=== PATIENT | male | born 1950 | race Caucasian/White ===

== ENCOUNTER → 2018-05-13 | Outpatient (CLI) | payer MEDICARE, OTHER ==
[2018-05-13 11:08] LABS: Potassium 4.7 mmol/L (3.5-5.1)
== END | disposition home or self-care (01) ==
LOC: LABWHC1 09:52
PROVIDERS: ATTEND Internal Medicine
DX: R73.9 Hyperglycemia, unspecified (principal); E87.5 Hyperkalemia
CPT/HCPCS: 36415; 80051; 82947; 83036

== ENCOUNTER 2018-11-04 16:20 | Emergency (ER) | payer MEDICARE, OTHER ==
[2018-11-04] MEDS ORDERED: SODIUM CHLORIDE 0.9% 500 ML 500 ML IV STA (17:17)
[2018-11-04 17:52] VITALS: RESP 16
[2018-11-04 18:16] LABS: Basophils # (A) 0.1 k/uL (0-0.2); Basophils % (A) 1 %; Eosinophils # (A) 0.3 k/uL (0-0.7); Eosinophils % (A) 4 %; HCT 47.2 % (39.0-53.0); HGB 15.4 gm/dL (13.0-17.5); Lymphocytes # (A) 1.7 k/uL (1.0-4.8); Lymphocytes % (A) 19 %; MCH 31.4 pg (25.0-35.0); MCHC 32.7 g/dL (31.0-37.0); MCV 96.1 fL (80.0-100.0); Monocytes # (A) 0.5 k/uL (0-1.0); Monocytes % (A) 6 %; Neutrophils # (A) 6.2 k/uL (1.3-7.7); Neutrophils % (A) 69 %; Platelet Count 292 k/uL (150-450); RBC 4.91 m/uL (4.30-5.90); RDW 13.4 % (11.5-15.5); WBC 8.9 k/uL (3.8-10.6)
[2018-11-04 18:26] LABS: Partial Thromboplastin Time 26.8 sec (22.0-30.0); Prothrombin Time 10.4 sec (9.0-12.0)
--- NOTE | 2018-11-04 18:26 | XR ---
EXAMINATION TYPE: XR chest 2V DATE OF EXAM: 11/04/2018 COMPARISON: 05/19/2012 HISTORY: Chest pain TECHNIQUE: Frontal and lateral views of the chest are obtained. FINDINGS: There is some coarsening of interstitial markings. There is poorly marginated 1.5 cm area of increased density over the left lower lobe unchanged and consistent with scarring. There is no ple ural effusion. There are sternal wires. Thoracic aorta is atheromatous. There is old left healed clav icle fracture. Thoracic spine is intact. IMPRESSION: No active cardiopulmonary disease. Mild pulmonary fibrotic changes.
--- NOTE | 2018-11-04 18:27 | XR ---
EXAMINATION TYPE: XR ribs LT DATE OF EXAM: 11/04/2018 COMPARISON: Today HISTORY: Left side chest pain TECHNIQUE: 4 views. I see no pleural effusion or pneumothorax. Left lung is clear of infiltrate. I see no rib fracture. IMPRESSION: Negative left ribs exam
[2018-11-04 18:28] LABS: Creatine Kinase 46 U/L (55-170)
[2018-11-04 18:29] LABS: ALT 24 U/L (21-72); AST 20 U/L (17-59); Albumin 4.1 g/dL (3.5-5.0); Alkaline Phosphatase 86 U/L (38-126); Anion Gap 7 mmol/L; Blood Urea Nitrogen 12 mg/dL (9-20); Calcium 9.5 mg/dL (8.4-10.2); Carbon Dioxide 27 mmol/L (22-30); Chloride 101 mmol/L (98-107); Glucose 94 mg/dL (74-99); Magnesium 2.2 mg/dL (1.6-2.3); Potassium 4.4 mmol/L (3.5-5.1); Sodium 135 mmol/L (137-145); Total Bilirubin 0.5 mg/dL (0.2-1.3); Total Protein 6.9 g/dL (6.3-8.2)
[2018-11-04 18:41] LABS: Creatine Kinase MB 1.8 ng/mL (0.0-2.4); Troponin I <0.012 ng/mL (0.000-0.034)
[2018-11-04] MEDS ORDERED: LIDOCAINE 5% PATCH TOPICAL STA (19:05)
--- NOTE | 2018-11-04 19:07 | ED ---
Fall HPI - General Chief Complaint: Fall Stated Complaint: Fall a week ago, rib pain Time Seen by Provider: 11/04/18 16:55 Source: patient Mode of arrival: ambulatory - History of Present Illness Initial Comments: 68-year-old male patient presents to the emergency department today for evaluation of left-sided rib and chest pain. Patient states approximately one week ago he did experience a fall after tripping over the dog and landed on the left side of his chest. Patient states he's had discomfort and increased pain with deep breathing and movement to the area since the injury. States that last evening the pain seemed to worsen. States that without any provocation he became short of breath, had some left-sided rib pain, and had some sweats. Patient states this concerned him so he presented here today for further evaluation. He denies any fevers or chills. Denies any cough or hemoptysis. Denies any nausea or vomiting. Denies any abdominal pain. Patient denies any recent rash, abdominal pain, nausea, vomiting, diarrhea, constipation, numbness , tingling, dizziness, weakness, hematuria, dysuria, urinary urgency, urinary frequency, headache, visual changes, or any other complaints. - Related Data Home Medications Medication Instructions Recorded Confirmed ALPRAZolam [Xanax] 0.5 mg PO DAILY 11/04/18 11/04/18 Aspirin [[place] [employer] Aspirin EC] 81 mg PO DAILY 11/04/18 11/04/18 Lisinopril [Zestril] 10 mg PO BID 11/04/18 11/04/18 Metoprolol Tartrate [Lopressor] 25 mg PO DAILY 11/04/18 11/04/18 Simvastatin [Zocor] 40 mg PO HS 11/04/18 11/04/18 Venlafaxine HCl [Effexor] 75 mg PO DAILY 11/04/18 11/04/18 Allergies Allergy/AdvReac Type Severity Reaction Status Date / Time No Known Allergies Allergy Verified 11/04/18 17:13 Review of Systems ROS Statement: Those systems with pertinent positive or pertinent negative responses have been documented in the HPI. ROS Other: All systems not noted in ROS Statement are negative. Past Medical History Past Medical History: Coronary Artery Disease (CAD), Chest Pain / Angina, Hyperlipidemia, Hypertension History of Any Multi-Drug Resistant Organisms: None Reported Past Surgical History: Coronary Bypass/CABG Past Psychological History: No Psychological Hx Reported Smoking Status: Current every day smoker Past Alcohol Use History: Occasional Past Drug Use History: None Reported General Exam Limitations: no limitations General appearance: alert, in no apparent distress, other (Physical well- developed, well-nourished elderly male patient in no acute distress. Vital signs upon presentation temperature 97.6F, pulse 66, respirations 20, blood pressure 183/79, pulse ox 99% on room air.) Eye exam: Present: normal appearance, PERRL, EOMI. Absent: scleral icterus, conjunctival injection, periorbital swelling ENT exam: Present: normal exam, normal oropharynx, mucous membranes moist Respiratory exam: Present: normal lung sounds bilaterally, chest wall tenderness (Mild left lateral chest wall tenderness near the midaxillary line). Absent: respiratory distress, wheezes, rales, rhonchi, stridor Cardiovascular Exam: Present: regular rate, normal rhythm, normal heart sounds. Absent: systolic murmur, diastolic murmur, rubs, gallop, clicks GI/Abdominal exam: Present: soft, normal bowel sounds. Absent: distended, tenderness, guarding, rebound, rigid Neurological exam: Present: alert, oriented X3, CN II-XII intact Psychiatric exam: Present: normal affect, normal mood Skin exam: Present: warm, dry, intact, normal color. Absent: rash Course Vital Signs 11/04/18 11/04/18 11/04/18 16:27 17:51 19:15 Temperature 97.6 F 98.5 F Pulse Rate 66 67 71 Respiratory 20 16 16 Rate Blood Pressure 183/79 191/83 156/68 O2 Sat by Pulse 99 95 96 Oximetry Medical Decision Making - Medical Decision Making 68-year-old male patient presented to the emergency department today for evaluation of left-sided rib and chest pain. Physical examination did reveal some mild tenderness over the left lateral chest wall near the midaxillary line. Lungs are clear to auscultation with good air movement. Given patient's history of CABG and episode of sweating and shortness of breath last evening he did perform labs which showed a normal troponin. EKG showed a sinus rhythm with a right bundle branch block. Patient declined need for pain medication. Did discuss findings and results with the patient, did discuss x-ray showed negative rib fracture. We did discuss chest wall contusion. He is instructed to take, Motrin for pain control. Instructed to apply ice over the area. He is instructed to follow-up with his primary care physician and school speech therapist for further evaluation. Return parameters were discussed in detail. He verbalizes understanding and agrees with this plan. - Lab Data Result diagrams: 11/04/18 17:47 11/04/18 17:47 Lab Results 11/04/18 11/04/18 11/04/18 Range/Units 17:47 17:47 17:47 WBC 8.9 (3.8-10.6) k/uL RBC 4.91 (4.30-5.90) m/uL Hgb 15.4 (13.0-17.5) gm/dL Hct 47.2 (39.0-53.0) % MCV 96.1 (80.0-100.0) fL MCH 31.4 (25.0-35.0) pg MCHC 32.7 (31.0-37.0) g/dL RDW 13.4 (11.5-15.5) % Plt Count 292 (150-450) k/uL Neutrophils % 69 % Lymphocytes % 19 % Monocytes % 6 % Eosinophils % 4 % Basophils % 1 % Neutrophils # 6.2 (1.3-7.7) k/uL Lymphocytes # 1.7 (1.0-4.8) k/uL Monocytes # 0.5 (0-1.0) k/uL Eosinophils # 0.3 (0-0.7) k/uL Basophils # 0.1 (0-0.2) k/uL PT (9.0-12.0) sec INR (<1.2) APTT (22.0-30.0) sec Sodium 135 L (137-145) mmol/L Potassium 4.4 (3.5-5.1) mmol/L Chloride 101 (98-107) mmol/L Carbon Dioxide 27 (22-30) mmol/L Anion Gap 7 mmol/L BUN 12 (9-20) mg/dL Creatinine 0.97 (0.66-1.25) mg/dL Est GFR (CKD-EPI)AfAm >90 (>60 ml/min/1.73 sqM) Est GFR (CKD-EPI)NonAf 79 (>60 ml/min/1.73 sqM) Glucose 94 (74-99) mg/dL Calcium 9.5 (8.4-10.2) mg/dL Magnesium 2.2 (1.6-2.3) mg/dL Total Bilirubin 0.5 (0.2-1.3) mg/dL AST 20 (17-59) U/L ALT 24 (21-72) U/L Alkaline Phosphatase 86 (38-126) U/L Total Creatine Kinase 46 L (55-170) U/L CK-MB (CK-2) 1.8 (0.0-2.4) ng/mL CK-MB (CK-2) Rel Index 3.9 Troponin I <0.012 (0.000-0.034) ng/mL Total Protein 6.9 (6.3-8.2) g/dL Albumin 4.1 (3.5-5.0) g/dL 11/04/18 Range/Units 17:47 WBC (3.8-10.6) k/uL RBC (4.30-5.90) m/uL Hgb (13.0-17.5) gm/dL Hct (39.0-53.0) % MCV (80.0-100.0) fL MCH (25.0-35.0) pg MCHC (31.0-37.0) g/dL RDW (11.5-15.5) % Plt Count (150-450) k/uL Neutrophils % % Lymphocytes % % Monocytes % % Eosinophils % % Basophils % % Neutrophils # (1.3-7.7) k/uL Lymphocytes # (1.0-4.8) k/uL Monocytes # (0-1.0) k/uL Eosinophils # (0-0.7) k/uL Basophils # (0-0.2) k/uL PT 10.4 (9.0-12.0) sec INR 1.0 (<1.2) APTT 26.8 (22.0-30.0) sec Sodium (137-145) mmol/L Potassium (3.5-5.1) mmol/L Chloride (98-107) mmol/L Carbon Dioxide (22-30) mmol/L Anion Gap mmol/L BUN (9-20) mg/dL Creatinine (0.66-1.25) mg/dL Est GFR (CKD-EPI)AfAm (>60 ml/min/1.73 sqM) Est GFR (CKD-EPI)NonAf (>60 ml/min/1.73 sqM) Glucose (74-99) mg/dL Calcium (8.4-10.2) mg/dL Magnesium (1.6-2.3) mg/dL Total Bilirubin (0.2-1.3) mg/dL AST (17-59) U/L ALT (21-72) U/L Alkaline Phosphatase (38-126) U/L Total Creatine Kinase (55-170) U/L CK-MB (CK-2) (0.0-2.4) ng/mL CK-MB (CK-2) Rel Index Troponin I (0.000-0.034) ng/mL Total Protein (6.3-8.2) g/dL Albumin (3.5-5.0) g/dL - Radiology Data Radiology results: report reviewed, image reviewed Two-view x-ray of the chest is obtained. Report was reviewed in its entirety. Impression by Dr. Iraheta shows no active cardiopulmonary disease. Mild pulmonary fibrotic changes. 4 views of the left ribs are obtained. These no pleural effusion or pneumothorax the left lung is clear infiltrate. There is no rib fracture. Impression by Dr. Iraheta shows negative left ribs exam. Disposition Clinical Impression: Left-sided chest wall pain Disposition: HOME SELF-CARE Condition: Good Instructions: Chest Wall Pain (ED) Additional Instructions: Apply ice to the painful area. Continue taking ibuprofen, with meals. Follow- up with your primary care physician for recheck as soon as possible. Follow-up with your school speech therapist for reevaluation as soon as possible. Return immediately for any new, worsening, or concerning symptoms Is patient prescribed a controlled substance at d/c from ED?: No Referrals: Diane Clarke MD [Primary Care Provider] - 1-2 days Nash Saavedra MD [STAFF PHYSICIAN] - 1-2 days Time of Disposition: 19:06
[2018-11-04 19:19] VITALS: BP 156/68; PULSE 71; TEMP 98.5
== END 2018-11-04 19:26 | disposition home or self-care (01) ==
LOC: EC 16:20
DX: R07.89 Other chest pain (principal); J84.10 Pulmonary fibrosis, unspecified; I45.10 Unspecified right bundle-branch block; R06.02 Shortness of breath; R61 Generalized hyperhidrosis; R07.81 Pleurodynia; E78.5 Hyperlipidemia, unspecified; I10 Essential (primary) hypertension; I25.119 Atherosclerotic heart disease of native coronary artery with unspecified angina pectoris; F17.200 Nicotine dependence, unspecified, uncomplicated; Z79.82 Long term (current) use of aspirin; Z79.899 Other long term (current) drug therapy; Z95.1 Presence of aortocoronary bypass graft
CPT/HCPCS: 36415; 71046; 80053; 82550; 82553; 83735; 84484; 85025; 85610; 85730; 93005; 96360; 99284

== ENCOUNTER → 2019-07-04 | Outpatient (CLI) | payer MEDICARE, OTHER ==
--- NOTE | 2019-07-04 09:37 | XR ---
EXAMINATION TYPE: XR shoulder complete LT DATE OF EXAM: 07/04/2019 COMPARISON: NONE HISTORY: Pain TECHNIQUE: Three views are submitted. FINDINGS: The osseous structures are intact. There is no acute fracture or dislocation. Chronic deformity of t he left clavicle suggestive of remote trauma. Hypertrophic spurring involving the AC joint. IMPRESSION: 1. AC joint arthropathy correlate for rotator cuff impingement. 2. Remote left clavicular fracture
== END | disposition home or self-care (01) ==
LOC: RADXRYALE 09:11
PROVIDERS: ATTEND Internal Medicine
DX: M19.011 Primary osteoarthritis, right shoulder (principal)

== ENCOUNTER 2020-05-18 09:52 | Emergency (ER) | payer MEDICARE, OTHER ==
[2020-05-18 09:58] VITALS: TEMP 98.2
[2020-05-18] MEDS ORDERED: HYDROmorphone 1 MG/ML 1 ML SYRINGE IM STA (10:13)
--- NOTE | 2020-05-18 10:26 | ED ---
Back Pain HPI - General Chief Complaint: Back Pain/Injury Stated Complaint: Back pain Time Seen by Provider: 05/18/20 10:02 Source: patient, RN notes reviewed Limitations: physical limitation - History of Present Illness Initial Comments: This is a 69-year-old male presents emergency from chief complaint of left-sided low back pain, left leg pain. Patient states that this happened on Wednesday when he went to lift a bucket weighing approximately 65 pounds over the edge of the truck bed. Patient states he has a felt pain in his left low back. Patient states she's been dealing with this back pain which has not been improving. He denies any bowel, bladder incontinence or retention. Denies any difficulty and bleeding. Patient has no current went to paresthesias of his left leg or saddle anesthesias. Patient states he has had back problems in the past with work. Patient states she's been taking Motrin for his pain. Patient states pain is worse with movement he is able to get comfortable concerns is laying down. Patient denies any abdominal pain, dysuria, fever, chills. Denies any discoloration to his lower extremity - Related Data Home Medications Medication Instructions Recorded Confirmed Aspirin [[place] Aspirin EC] 162 mg PO DAILY 11/04/18 05/18/20 Lisinopril [Zestril] 10 mg PO BID 11/04/18 05/18/20 Metoprolol Tartrate [Lopressor] 25 mg PO DAILY 11/04/18 05/18/20 Simvastatin [Zocor] 40 mg PO HS 11/04/18 05/18/20 Mirtazapine 15 mg PO HS 05/18/20 05/18/20 amLODIPine [Norvasc] 5 mg PO DAILY 05/18/20 05/18/20 clonazePAM 0.5 mg PO BID 05/18/20 05/18/20 Previous Rx's Medication Instructions Recorded Cyclobenzaprine [Flexeril] 5 mg PO TID PRN #15 tablet 05/18/20 Hydrocodone/Acetaminophen [[place] 1 tab PO Q6HR PRN #12 tab 05/18/20 5-325] Allergies Allergy/AdvReac Type Severity Reaction Status Date / Time No Known Allergies Allergy Verified 05/18/20 10:46 Review of Systems ROS Statement: Those systems with pertinent positive or pertinent negative responses have been documented in the HPI. ROS Other: All systems not noted in ROS Statement are negative. Past Medical History Past Medical History: Coronary Artery Disease (CAD), Chest Pain / Angina, Hyperlipidemia, Hypertension History of Any Multi-Drug Resistant Organisms: None Reported Past Surgical History: Coronary Bypass/CABG, Orthopedic Surgery Additional Past Surgical History / Comment(s): rotator cuff Past Psychological History: No Psychological Hx Reported Smoking Status: Current every day smoker Past Alcohol Use History: Occasional Past Drug Use History: None Reported General Exam Limitations: physical limitation General appearance: alert, in no apparent distress Head exam: Present: atraumatic, normocephalic, normal inspection Neck exam: Present: normal inspection, full ROM. Absent: tenderness, meningismus, lymphadenopathy Respiratory exam: Present: normal lung sounds bilaterally. Absent: respiratory distress, wheezes, rales, rhonchi, stridor Cardiovascular Exam: Present: regular rate, normal rhythm, normal heart sounds. Absent: systolic murmur, diastolic murmur, rubs, gallop, clicks GI/Abdominal exam: Present: soft, normal bowel sounds. Absent: distended, tend erness, guarding, rebound, rigid Extremities exam: Present: other (Lower extremity strength equal bilaterally, neurovascular intact equal color equal warmth pedal pulses equal bilaterally) Back exam: Present: full ROM (Patient reports mild discomfort with range of motion), tenderness (Past left lower lumbar), paraspinal tenderness, other (Pain with left straight leg raise). Absent: CVA tenderness (R), CVA tenderness (L), muscle spasm, vertebral tenderness Neurological exam: Present: reflexes normal. Absent: motor sensory deficit Skin exam: Present: warm, dry, intact, normal color. Absent: rash Course Vital Signs 05/18/20 09:55 Temperature 98.2 F Pulse Rate 73 Respiratory 18 Rate Blood Pressure 194/97 O2 Sat by Pulse 98 Oximetry Medical Decision Making - Medical Decision Making X-rays were reviewed which shows mild degenerative changes abnormality otherwise. Patient's pain is improved at this time. He has no red flag symptoms he is able to ambulate with no difficulty. There is no evidence of cauda equina at this time. Patient advised to follow-up PCP. He provided pain relief at home. His advised not to take his pain meds with his Klonopin. Return parameters were discussed. Disposition Clinical Impression: Strain of lumbar region, Lumbar radiculopathy Disposition: HOME SELF-CARE Condition: Stable Instructions (If sedation given, give patient instructions): Acute Low Back Pain (ED) Additional Instructions: Please return to the Emergency Department if symptoms worsen or any other concerns. Prescriptions: Cyclobenzaprine [Flexeril] 5 mg PO TID PRN #15 tablet PRN Reason: Muscle Spasm Hydrocodone/Acetaminophen [[place] 5-325] 1 tab PO Q6HR PRN #12 tab PRN Reason: Pain Is patient prescribed a controlled substance at d/c from ED?: Yes When asked, does pt state using other controlled substances?: Yes If prescribed controlled substance>3 days was MAPS reviewed?: Prescribed <3 Days If opioid is for acute pain is fill amount 7 days or less?: Yes If Rx opioid, was Start Talking consent form obtained?: Yes Referrals: Diane Clarke MD [Primary Care Provider] - 1-2 days
--- NOTE | 2020-05-18 10:49 | XR ---
EXAMINATION TYPE: XR lumbosacral spine min 4V DATE OF EXAM: 05/18/2020 CLINICAL HISTORY: pain COMPARISON: NONE TECHNIQUE: Frontal, lateral, and oblique images of the lumbar spine are obtained. FINDINGS: There are 5 lumbar type vertebral bodies identified. The lumbar spine shows satisfactory alignment without evidence of acute fracture or dislocation. Vertebral body heights are within normal limits. Moderate multilevel degenerative disc space narrowing and spondylosis. Moderate facet joint arthropathy. The overlying soft tissue appears unremarkable. IMPRESSION: No acute fracture or dislocation is seen in the lumbar spine.ICD 10 NO FRACTURE, INITIAL EVALUATION
[2020-05-18 11:11] VITALS: BP 179/95; PULSE 86; RESP 16
== END 2020-05-18 11:10 | disposition home or self-care (01) ==
LOC: EC 09:52
DX: S39.012A Strain of muscle, fascia and tendon of lower back, initial encounter (principal); M51.16 Intervertebral disc disorders with radiculopathy, lumbar region; F17.200 Nicotine dependence, unspecified, uncomplicated; I25.119 Atherosclerotic heart disease of native coronary artery with unspecified angina pectoris; E78.5 Hyperlipidemia, unspecified; I10 Essential (primary) hypertension; Z95.5 Presence of coronary angioplasty implant and graft; Z98.890 Other specified postprocedural states; Z79.82 Long term (current) use of aspirin; Z79.899 Other long term (current) drug therapy; X50.0XXA Overexertion from strenuous movement or load, initial encounter; Y93.89 Activity, other specified
CPT/HCPCS: 72110; 96372; 99283; J1170

== ENCOUNTER → 2020-06-14 | Outpatient (CLI) | payer MEDICARE, OTHER ==
--- NOTE | 2020-06-14 15:18 | PE ---
EXAMINATION TYPE: PET CT fusion skull to thigh DATE OF EXAM: 06/14/2020 COMPARISON: NONE outside CT April 30, 2020 HISTORY: Recent abnormal CT, solitary pulmonary nodule. TECHNIQUE: Following the intravenous administration of 9.37 mCi of F-18 FDG, whole body images are p erformed from the skull base to the midthigh. Images are reviewed on the computer in the coronal, ax ial, and sagittal planes. Reconstructed rotating images are created on independent workstation and r eviewed on the computer. A noncontrast CT is performed in conjunction with the PET scan. SCAN: Initial Scan FINDINGS: SKULL BASE AND NECK: No areas of suspicious hypermetabolic uptake. CHEST, MEDIASTINUM, AND HILAR REGION: Background Mild to moderate biapical pleural/parenchymal scarri ng. Areas of atelectatic change and/or mild edema with respiratory motion artifact compromises redemo nstrated. Persistent 1.3 cm area of nodularity or nodular consolidation in the lingula and the rectum image 130 is ametabolic. Do not see definitive subcentimeter nodule in the right lower lobe on curre nt study. No areas of abnormal hypermetabolic uptake. ABDOMEN AND PELVIS: No areas of abnormal hypermetabolic uptake. Normal excretion. OSSEOUS STRUCTURES: No areas of abnormal hypermetabolic uptake. OTHER CT: Moderate calcified plaque bilateral carotid bulb level is present. Nasal septum deviated to left of midline. Post-CABG changes with mediastinal clips and sternal wires.. Cardiomegaly is redemonstrated with mode rate left atrial and biventricular dilatation. Moderate to severe calcified plaque of the aorta extends into branch vessels. Simple appearing thin-w alled cyst suspected throughout both kidneys. Multilevel mild to moderate spurring in the spine. Pros hansen upper limits of normal in size. IMPRESSION: No suspicious hypermetabolic uptake to suggest malignancy. Lingular finding favoring post inflammatory scarring.
== END | disposition home or self-care (01) ==
LOC: RADPETMAIN 11:04
PROVIDERS: ATTEND Internal Medicine Sleep Medicine
DX: J98.4 Other disorders of lung (principal)
CPT/HCPCS: 78815; A9552

== ENCOUNTER → 2020-11-22 | Outpatient (CLI) | payer MEDICARE, OTHER ==
--- NOTE | 2020-11-24 16:44 | US ---
EXAMINATION TYPE: US st tissue neck DATE OF EXAM: 11/22/2020 COMPARISON: Correlation PET/CT 06/14/2020 CLINICAL HISTORY: 70-year-old male R59.9 ENLARGED LYMPH NODES. Pt states palpable lump right lateral neck submandibular area x 1 month TECHNIQUE: Ultrasound examination right submandibular region at the site of patient's palpable abnorm ality. FINDINGS: Arborist notes:In area of pt's palpable there appears to be a heterogeneous, solid, vascular les ion= 2.8 x 1.2 x 3.0 cm IMPRESSION: Targeted scanning along the right lateral neck at the patient's palpable site shows a heterogeneous s olid area measuring 3.0 x 2.8 x 1.2 cm. The etiology is unclear. No obvious mass was identified on e 06/14/2020 PET/CT in this region. New lymphadenopathy or a salivary gland tumor are differential cons iderations. Contrast enhanced CT of the neck can further evaluate.
== END | disposition home or self-care (01) ==
LOC: RADUSWWP 13:34
PROVIDERS: ATTEND Internal Medicine
DX: R59.9 Enlarged lymph nodes, unspecified (principal)
CPT/HCPCS: 76536

== ENCOUNTER → 2020-11-29 | Outpatient (CLI) | payer MEDICARE, OTHER ==
--- NOTE | 2020-11-29 15:56 | CT ---
EXAMINATION TYPE: CT neck chest w con DATE OF EXAM: 11/29/2020 COMPARISON: PET CT June 14, 2020 HISTORY: Right sided mandibular lump. BB placed on region of interest. CT DLP: 1051 mGycm. Automated Exposure Control for Dose Reduction was Utilized. TECHNIQUE: CT scan of the neck and thorax are performed following with IV Contrast, patient injected with 80ml mL of Isovue 300. FINDINGS: Neck: Airway: No gross abnormality seen. Parotid/submandibular glands: Metallic BB placed at site of palpable abnormality right submandibular level axial image 49. Submandibular glands symmetric and felt within normal limits. No suspicious adj acent solid or cystic mass or fluid collection. Carotid/Vascular Structures: Moderate to severe calcified plaque right greater than left carotid bulb s, cannot exclude significant stenosis proximal right internal carotid artery. Follow-up advised. Osseous Structures: Grade 1 retrolisthesis C4 on C5, C5 and C6, and C6 on C7 . Moderate to severe dis c space narrowing C3-C4 level. Moderate disc space narrowing C4-C5 through C6-C7 level. Posterior spu r disc complexes efface the anterior thecal sac at these levels. Axial images show multilevel uncover tebral and facet degenerative changes contributing to multilevel early moderate to severe bilateral n eural foraminal narrowing. Other: Nasal septum deviated to left of midline. No suspicious greater than 1 cm neck adenopathy. IMPRESSION: 1. No suspicious neck mass or adenopathy. 2. Moderate to severe calcified plaque right greater than left, significant stenosis proximal right i nternal carotid artery is thought present. Follow-up carotid ultrasound advised to better evaluate an d characterize due to dense calcified plaque. Chest: LUNGS: Mild to moderate biapical pleural/parenchymal scarring. Mild emphysematous. Mild to moderate b ibasilar linear scarring and atelectasis anteriorly. No pleural effusion or pneumothorax seen bilater ally. No suspicious new nodules or masses. Stable 1.0 cm nodule or nodular consolidation in the lingu la axial image 46. MEDIASTINUM: Post CABG changes with mediastinal clips and sternal wires redemonstrated. There are no greater than 1 cm hilar or mediastinal lymph nodes. No pericardial effusion is seen. Persistent ca rdiomegaly. OTHER: Visualized liver and lobe atelectasis with diffuse fatty infiltration. Small sized hiatal tarah ia. IMPRESSION: No suspicious new or enlarging thoracic nodules or masses.
== END | disposition home or self-care (01) ==
LOC: RADCTMAIN 14:02
PROVIDERS: ATTEND Internal Medicine
DX: I65.21 Occlusion and stenosis of right carotid artery (principal)
CPT/HCPCS: 82565; 84520; 70491; 71260; 36415; Q9967

== ENCOUNTER → 2020-12-10 | Outpatient (CLI) | payer MEDICARE, OTHER ==
--- NOTE | 2020-12-11 13:26 | US ---
EXAMINATION TYPE: US carotid duplex BILAT DATE OF EXAM: 12/10/2020 COMPARISON: NONE CLINICAL HISTORY: I65.23 Bilateral carotid artery stenosis. EXAM MEASUREMENTS: RIGHT: Peak Systolic Velocity (PSV) cm/sec ----- Right CCA: 136.0 ----- Right ICA: 123.0 ----- Right ECA: 111.0 ICA/CCA ratio: 0.9 RIGHT: End Diastole cm/sec ----- Right CCA: 24.0 ----- Right ICA: 29.2 ----- Right ECA: 11.1 LEFT: Peak Systolic Velocity (PSV) cm/sec ----- Left CCA: 122.0 ----- Left ICA: 137.0 ----- Left ECA: 107.0 ICA/CCA ratio: 1.1 LEFT: End Diastole cm/sec ----- Left CCA: 23.5 ----- Left ICA: 37.4 ----- Left ECA: 0.0 VERTEBRALS (direction of flow): Right Vertebral: Antegrade Left Vertebral: Antegrade Rhythm: Normal Bilateral intimal thickening, minimal plaque bilateral CCA bulb and ICA, elevated velocities: right p shahid and distal CCA, no significant stenosis. IMPRESSION: Bilateral atheromatous plaquing some of which is hard to shadowing within the bilateral carotid bifurcations. 2. Moderate stenosis at the left internal carotid artery between 50 and 69% based on velocities. 3. Nearly 50% narrowing of the right internal carotid artery based on velocities. Criteria for Assigning % of Stenosis / Diameter reduction (Estimation based on the indirect measurements of the internal carotid artery velocities (ICA PSV). 1. Normal (no stenosis)=ICA PSV < 125 cm/s: ratio < 2.0: ICA EDV<40 cm/s. 2. Less than 50% stenosis=ICA PSV < 125 cm/s: ratio < 2.0: ICA EDV<40 cm/s. 3. 50 to 69% stenosis=ICA PSV of 125 to 230 cm/s: ration 2.0 ? 4.0: ICA EDV 40-100 cm/s. 4. Greater than 70% stenosis to near occlusion= ICA PSV > 230 cm/s: ratio > 4.0: ICA EDV > 100 cm/s. 5. Near occlusion= ICA PSV velocities may be low or undetectable: variable ratio and ICA EDV. 6. Total occlusion=unable to detect flow.
== END | disposition home or self-care (01) ==
LOC: RADUSWWP 16:16
PROVIDERS: ATTEND Internal Medicine
DX: I65.23 Occlusion and stenosis of bilateral carotid arteries (principal)
CPT/HCPCS: 93880

== ENCOUNTER → 2021-02-25 | Outpatient (CLI) | payer MEDICARE, OTHER ==
[2021-02-25 11:01] LABS: African American GFR (CKD) >90 (>60 ml/min/1.73 sqM); Blood Urea Nitrogen 18 mg/dL (9-20); Non-African American GFR(CKD) 88 (>60 ml/min/1.73 sqM)
--- NOTE | 2021-02-25 12:08 | CT ---
EXAMINATION TYPE: CT abdomen wo/w con DATE OF EXAM: 02/25/2021 COMPARISON: Outside CT April 30, 2020. PET CT June 14, 2020 HISTORY: Renal Mass CT DLP: 555.9 mGycm, Automated Exposure Control for Dose Reduction was Utilized. CONTRAST: CT scan of the abdomen is performed with oral and without and with IV Contrast, patient injected with 100 ml mL of Isovue 300. FINDINGS: LUNG BASES: Sternal wires are partially imaged. LIVER/GB: No significant abnormality is appreciated. PANCREAS: No significant abnormality is seen. SPLEEN: No significant abnormality is seen. ADRENALS: No significant abnormality is seen. KIDNEYS: Noncontrast images show punctate 1 to 2 mm calculus lower pole of the right kidney coronal i mage 79. Postcontrast images show symmetric cortical medullary uptake and excretion from both kidneys with a few benign thin-walled cysts bilaterally. Largest lesion is 2.1 cm laterally left kidney lowe r pole level series 8 image 41. 2 adjacent lesions noted posteriorly mid to lower pole of the right k idney on images 36 and 37 respectively. No concerning solid or cystic renal mass identified in either kidney. No hydronephrosis is noted bilaterally. BOWEL: Oral contrast did not reach level of cecum. No suspicious small or large bowel dilatation is s een LYMPH NODES: No greater than 1cm abdominal lymph nodes are appreciated. OSSEOUS STRUCTURES: [id number] multilevel spurring in the spine. OTHER: Moderate to severe mixed plaque of the aorta extends into branch vessels. IMPRESSION: There are a few simple appearing thin-walled cysts bilaterally. There is 1 to 2 mm nonobs tructing calculus lower pole of the right kidney. No concerning solid or cystic renal mass identified bilaterally.
== END | disposition home or self-care (01) ==
LOC: RADCTMAIN 10:18
PROVIDERS: ATTEND Urology
DX: N20.0 Calculus of kidney (principal)
CPT/HCPCS: 82565; 84520; 74170; 36415; Q9967

== ENCOUNTER 2022-02-23 17:44 | Emergency (ER) | payer MEDICARE, OTHER ==
[2022-02-23 17:55] VITALS: TEMP 98.1
--- NOTE | 2022-02-23 18:34 | ED ---
Fall HPI - General Chief Complaint: Fall Stated Complaint: Fall/AMS/Blood thinners Time Seen by Provider: 02/23/22 18:25 Source: patient Mode of arrival: wheelchair - History of Present Illness Initial Comments: Dwight is a 71-year-old male who takes daily baby aspirin. Patient presents the ER today with his family via private vehicle for evaluation of head injury and confusion. Patient reportedly tripped over one of his animals yesterday evening falling and hitting the right side of his head, he does not know if he lost consciousness. He put himself to bed but reports since he woke up he does not feel right. Family reports he's stumbling over words and slurring his s peech. Patient reports a mild headache. - Related Data Home Medications Medication Instructions Recorded Confirmed Aspirin [[facility] Aspirin EC] 162 mg PO DAILY 11/04/18 05/18/20 Metoprolol Tartrate [Lopressor] 25 mg PO DAILY 11/04/18 05/18/20 Simvastatin [Zocor] 40 mg PO HS 11/04/18 05/18/20 lisinopriL [Zestril] 10 mg PO BID 11/04/18 05/18/20 Mirtazapine 15 mg PO HS 05/18/20 05/18/20 amLODIPine [Norvasc] 5 mg PO DAILY 05/18/20 05/18/20 clonazePAM 0.5 mg PO BID 05/18/20 05/18/20 Previous Rx's Medication Instructions Recorded Cyclobenzaprine [Flexeril] 5 mg PO TID PRN #15 tablet 05/18/20 Hydrocodone/Acetaminophen [Celina 1 tab PO Q6HR PRN #12 tab 05/18/20 5-325] predniSONE 50 mg PO DAILY #5 tab 05/18/20 Allergies Allergy/AdvReac Type Severity Reaction Status Date / Time No Known Allergies Allergy Verified 02/23/22 17:55 Review of Systems ROS Statement: Those systems with pertinent positive or pertinent negative responses have been documented in the HPI. ROS Other: All systems not noted in ROS Statement are negative. Past Medical History Past Medical History: Coronary Artery Disease (CAD), Chest Pain / Angina, Hyperlipidemia, Hypertension History of Any Multi-Drug Resistant Organisms: None Reported Past Surgical History: Coronary Bypass/CABG, Orthopedic Surgery Additional Past Surgical History / Comment(s): rotator cuff Past Psychological History: No Psychological Hx Reported Smoking Status: Former smoker Past Alcohol Use History: Occasional Past Drug Use History: None Reported General Exam - General Exam Comments Initial Comments: Physical Exam GENERAL: Patient is well-developed and well-nourished HENT: Abrasion right scalp Hematoma around right eye Ear canals occluded by wax, TM not visible Negative cross signs/racoon eyes EYES: PERRL, EOMI Subconjunctival hemorrhage lateral to the iris, no hyphema PULMONARY: Unlabored respirations. No audible rales rhonchi or wheezing was noted. CARDIOVASCULAR: There is a regular rate and rhythm without any murmurs gallops or rubs. ABDOMEN: Soft and nontender with normal bowel sounds. SKIN: Abrasion on scalp : Deferred NEUROLOGIC: Patient is alert and oriented x3 Confused about events of the day MUSCULOSKELETAL: Normal extremities with adequate strength and full range of motion. No lower extremity swelling or edema. No calf tenderness. PSYCHIATRIC: Normal psychiatric evaluation. Limitations: no limitations Course Vital Signs 02/23/22 02/23/22 02/23/22 17:51 18:41 19:05 Temperature 98.1 F Pulse Rate 78 72 78 Respiratory 16 18 18 Rate Blood Pressure 203/103 199/85 177/94 O2 Sat by Pulse 96 95 98 Oximetry 02/23/22 19:16 Temperature Pulse Rate 75 Respiratory 18 Rate Blood Pressure 162/71 O2 Sat by Pulse 94 L Oximetry Medical Decision Making - Medical Decision Making Head facial cervical spine CTs were ordered from triage and patient was taken to CT suite where radiology techs noted there seemed to be an acute intracranial hemorrhage and patient was moved to bed 1 in the emergency department Physical exam does reveal head and facial trauma, patient somewhat confused but appropriate Labs were ordered CT results were discussed with radiology there is left-sided subdural bilateral intraparenchymal hemorrhages with no signs of herniation, there is a superior orbital wall fracture on the right Patient care was discussed with trauma physician Dr. Nesbitt at [facility] who agrees with plan for transfer Dr Frye in ER accepts transfer TDAP updated - Lab Data Result diagrams: 02/23/22 18:33 02/23/22 18:33 Lab Results 02/23/22 02/23/22 02/23/22 Range/Units 18:33 18:33 18:33 WBC 14.8 H (3.8-10.6) k/uL RBC 5.02 (4.30-5.90) m/uL Hgb 16.1 (13.0-17.5) gm/dL Hct 48.0 (39.0-53.0) % MCV 95.6 (80.0-100.0) fL MCH 32.1 (25.0-35.0) pg MCHC 33.6 (31.0-37.0) g/dL RDW 14.2 (11.5-15.5) % Plt Count 247 (150-450) k/uL MPV 7.9 Neutrophils % 82 % Lymphocytes % 10 % Monocytes % 5 % Eosinophils % 1 % Basophils % 0 % Neutrophils # 12.2 H (1.3-7.7) k/uL Lymphocytes # 1.5 (1.0-4.8) k/uL Monocytes # 0.8 (0-1.0) k/uL Eosinophils # 0.2 (0-0.7) k/uL Basophils # 0.0 (0-0.2) k/uL PT 10.1 (9.0-12.0) sec INR 0.9 (<1.2) APTT 26.8 (22.0-30.0) sec Sodium 130 L (137-145) mmol/L Potassium 4.1 (3.5-5.1) mmol/L Chloride 95 L (98-107) mmol/L Carbon Dioxide 26 (22-30) mmol/L Anion Gap 9 mmol/L BUN 17 (9-20) mg/dL Creatinine 0.93 (0.66-1.25) mg/dL Est GFR (CKD-EPI)AfAm >90 (>60 ml/min/1.73 sqM) Est GFR (CKD-EPI)NonAf 81 (>60 ml/min/1.73 sqM) Glucose 107 H (74-99) mg/dL Calcium 8.9 (8.4-10.2) mg/dL Total Bilirubin 1.4 H (0.2-1.3) mg/dL AST 33 (17-59) U/L ALT 21 (4-49) U/L Alkaline Phosphatase 110 (38-126) U/L Troponin I (0.000-0.034) ng/mL Total Protein 7.4 (6.3-8.2) g/dL Albumin 4.4 (3.5-5.0) g/dL Serum Alcohol <10 mg/dL 02/23/22 Range/Units 18:33 WBC (3.8-10.6) k/uL RBC (4.30-5.90) m/uL Hgb (13.0-17.5) gm/dL Hct (39.0-53.0) % MCV (80.0-100.0) fL MCH (25.0-35.0) pg MCHC (31.0-37.0) g/dL RDW (11.5-15.5) % Plt Count (150-450) k/uL MPV Neutrophils % % Lymphocytes % % Monocytes % % Eosinophils % % Basophils % % Neutrophils # (1.3-7.7) k/uL Lymphocytes # (1.0-4.8) k/uL Monocytes # (0-1.0) k/uL Eosinophils # (0-0.7) k/uL Basophils # (0-0.2) k/uL PT (9.0-12.0) sec INR (<1.2) APTT (22.0-30.0) sec Sodium (137-145) mmol/L Potassium (3.5-5.1) mmol/L Chloride (98-107) mmol/L Carbon Dioxide (22-30) mmol/L Anion Gap mmol/L BUN (9-20) mg/dL Creatinine (0.66-1.25) mg/dL Est GFR (CKD-EPI)AfAm (>60 ml/min/1.73 sqM) Est GFR (CKD-EPI)NonAf (>60 ml/min/1.73 sqM) Glucose (74-99) mg/dL Calcium (8.4-10.2) mg/dL Total Bilirubin (0.2-1.3) mg/dL AST (17-59) U/L ALT (4-49) U/L Alkaline Phosphatase (38-126) U/L Troponin I 0.027 (0.000-0.034) ng/mL Total Protein (6.3-8.2) g/dL Albumin (3.5-5.0) g/dL Serum Alcohol mg/dL Disposition Clinical Impression: Intracranial hemorrhage, Fall, Orbital roof fracture Disposition: OTHER INSTITUTION NOT DEFINED Condition: Serious Is patient prescribed a controlled substance at d/c from ED?: No Referrals: Diane Clarke MD [Primary Care Provider] - 1-2 days - Out of Hospital Transfer - Req. Specs Out of Hospital Transfer - Requested Specifics: Other Emergency Center ([facility])
[2022-02-23] MEDS ORDERED: niCARdipine 20 MG in SODIUM CHLORIDE 0.9% 192 ML IV SCH (18:45)
[2022-02-23 18:50] LABS: Basophils % (A) 0 %; Eosinophils # (A) 0.2 k/uL (0-0.7); Eosinophils % (A) 1 %; HGB 16.1 gm/dL (13.0-17.5); Lymphocytes # (A) 1.5 k/uL (1.0-4.8); Lymphocytes % (A) 10 %; MCH 32.1 pg (25.0-35.0); MCHC 33.6 g/dL (31.0-37.0); MCV 95.6 fL (80.0-100.0); Mean Platelet Volume 7.9; Monocytes # (A) 0.8 k/uL (0-1.0); Monocytes % (A) 5 %; Neutrophils # (A) 12.2 k/uL (1.3-7.7); Neutrophils % (A) 82 %; Platelet Count 247 k/uL (150-450); RBC 5.02 m/uL (4.30-5.90); RDW 14.2 % (11.5-15.5); WBC 14.8 k/uL (3.8-10.6)
[2022-02-23 18:55] LABS: ALT 21 U/L (4-49); AST 33 U/L (17-59); African American GFR (CKD) >90 (>60 ml/min/1.73 sqM); Albumin 4.4 g/dL (3.5-5.0); Alcohol <10 mg/dL; Alkaline Phosphatase 110 U/L (38-126); Anion Gap 9 mmol/L; Blood Urea Nitrogen 17 mg/dL (9-20); Calcium 8.9 mg/dL (8.4-10.2); Carbon Dioxide 26 mmol/L (22-30); Chloride 95 mmol/L (98-107); Glucose 107 mg/dL (74-99); Non-African American GFR(CKD) 81 (>60 ml/min/1.73 sqM); Potassium 4.1 mmol/L (3.5-5.1); Sodium 130 mmol/L (137-145); Total Bilirubin 1.4 mg/dL (0.2-1.3); Total Protein 7.4 g/dL (6.3-8.2)
[2022-02-23 19:03] LABS: INR 0.9 (<1.2); Partial Thromboplastin Time 26.8 sec (22.0-30.0); Prothrombin Time 10.1 sec (9.0-12.0)
--- NOTE | 2022-02-23 19:03 | CT ---
EXAMINATION TYPE: CT brain cspine wo con, CT facial bones wo con CT DLP: 1285.9 mGycm, Automated exposure control for dose reduction was used. DATE OF EXAM: 02/23/2022 6:35 PM COMPARISON: CT 11/29/2020. CLINICAL INDICATION:Male, 71 years old with history of fall; TECHNIQUE: Brain: Multiple axial CT images of the brain were obtained without IV contrast. Cspine: Axial CT images from the skull base to the inferior aspect of T2 we obtained without intraven ous contrast. Coronal and sagittal reformatted images were also reviewed. Facial bone: Axial CT scans through the facial bones were also performed. FINDINGS: Brain: Extra-axial spaces: High density blood products layering along the left cerebral hemisphere involving the left frontal/parietal/temporal lobes. High density blood products are seen within the sulci of t he left sulci is appreciated on series 303 image 31. Ventricular system: Within normal limits Cerebral parenchyma: There is intraparenchymal hemorrhage of the bilateral temporal lobes. On the rig ht measuring 12 x 9 mm and on the left measuring 31 x 22 mm. The linares-white junction is well differen tiated. Cerebellum: Unremarkable. Mass effect: 2 mm rightward midline shift. Intracranial vasculature: Atherosclerotic calcifications of the intracranial vessels. Soft tissues: Soft tissue edema/fat stranding over the right frontal and lateral aspect of the soft t issue/scalp. There is a right periorbital hematoma measuring 41 x 14 mm. Calvarium/osseous structures: No depressed skull fracture. Paranasal sinuses and mastoid air cells: Trace fluid within the mastoid air cells bilaterally left gr eater than right. Visualized orbits: Orbital contents are intact. Cervical spine: Fracture: None. Osseous structures: Multilevel degenerative disc disease changes with endplate spurring and disc oste ophyte complex's. Vertebral alignment: Within normal limits. Spinal canal/Neural Foramina: Multilevel varying degrees of spinal canal stenosis secondary to disc o steophyte complex's.. Multilevel moderate to severe is neural foraminal stenosis most pronounced at C 3-C4 and C4-C5. Neck soft tissues: Prevertebral soft tissues are within normal limits. Other: The airway is patent. Mild paraseptal and centrilobular emphysema changes seen within the lung apices. Right apical pulmonary nodule measuring 5 mm is unchanged from 04/27/2020.. Atherosclerosis o f the aortic arch. There is atherosclerosis of the carotid bifurcations. Facial: There is an acute fracture through the right superior orbital ridge without displacement that extends into the right frontal bone. The left nasal bone deformity which could represent acute fracture. The orbital contents are unremarkable. The temporal-mandibular joints appear symmetric. The visualized p ortion of the paranasal sinuses appear clear. Trace effusions within the mastoid air cells bilaterall y with left greater than right. Findings communicated to Dr. Miranda Ku DO on 02/23/2022 6:[address] Beny Reeves. IMPRESSION: 1. Acute subdural hemorrhage along the left cerebrum with 2 mm rightward subfalcine herniation. 2. Left subarachnoid hemorrhage involving the temporal lobe. 3. Bilateral temporal lobe intraparenchymal hemorrhages, left greater than right. 4. Acute fracture through the right superior orbital ridge without displacement in extension into the right frontal bone. 5. No evidence of fracture of the cervical spine. There is multilevel disc degeneration changes throu ghout the cervical spine with varying degrees of spinal canal neural foraminal stenosis. 6. Right periorbital hematoma. 7. Right apical pulmonary nodule measuring 5 mm unchanged from 04/30/2020. 8. Deformity of the left nasal bone relate with point tenderness for acute injury.
[2022-02-23] MEDS ORDERED: DIPH,PERTUS(ACELL)TETVAC-LF 0.5 ML VIAL IM ONE (19:11)
[2022-02-23 19:40] VITALS: BP 173/81; PULSE 83; RESP 16
[2022-02-23 20:06] LABS: Appearance,Urine Clear (Clear); Bilirubin,Urine Negative (Negative); Blood,Urine Negative (Negative); Color,Urine Light Yellow; Glucose,Urine (UA) Negative (Negative); Ketones,Urine 1+ (Negative); Leukocyte Esterase,Urine Negative (Negative); Nitrite,Urine Negative (Negative); PH, Urine 6.5 (5.0-8.0); Protein,Urine Negative (Negative); Specific Gravity,Urine 1.006 (1.001-1.035); Urobilinogen,Urine <2.0 mg/dL (<2.0)
[2022-02-23 20:24] LABS: Cocaine Screen,Urine Not Detected (NotDetected); Opiate Screen,Urine Not Detected (NotDetected); Phencyclidine Screen,Urine Not Detected (NotDetected); Urn Cannabinoid Scrn Not Detected (NotDetected)
[2022-02-23 20:25] LABS: Amphetamine Screen,Urine Not Detected (NotDetected); Barbiturate Screen,Urine Not Detected (NotDetected); Benzodiazepines Screen,Urine Detected (NotDetected); Methadone Screen, Urine Not Detected (NotDetected); Oxycodone Screen, Urine Not Detected (NotDetected); Tricyclic Antidepressant,Urine Not Detected (NotDetected)
== END 2022-02-23 19:46 | disposition other institution (70) ==
LOC: EC 17:44
DX: S02.121A Fracture of orbital roof, right side, initial encounter for closed fracture (principal); S06.309A Unspecified focal traumatic brain injury with loss of consciousness of unspecified duration, initial encounter; I10 Essential (primary) hypertension; E78.5 Hyperlipidemia, unspecified; I25.10 Atherosclerotic heart disease of native coronary artery without angina pectoris; Z87.891 Personal history of nicotine dependence; Z79.82 Long term (current) use of aspirin; Z79.52 Long term (current) use of systemic steroids; Z79.899 Other long term (current) drug therapy; Z95.1 Presence of aortocoronary bypass graft; W01.0XXA Fall on same level from slipping, tripping and stumbling without subsequent striking against object, initial encounter
CPT/HCPCS: 36415; 93005; 86900; 86901; 80053; 84484; 85025; 85610; 85730; 86850; 81003; 80306; 72125; 70486; 70450; 90715; 99285; 96374; 90471; G0480; 80320

== ENCOUNTER → 2022-04-22 | Outpatient (CLI) | payer MEDICARE, OTHER ==
--- NOTE | 2022-04-22 19:05 | EEG ---
ELECTROENCEPHALOGRAM REPORT DATE OF SERVICE: 04/22/2022 PREAMBLE: This is a 71-year-old male with history of traumatic subdural hematoma due to a trip and fall in February 2022. He was transferred to [facility]. Current medications: Aspirin, lisinopril, amlodipine, Celexa, metoprolol, simvastatin, and Xanax, which has been on hold. EEG FINDINGS: This is a 21 channel digital EEG recorded with video competent, utilizing 10/20 international system with referential and bipolar montages. The background consists of well-developed, moderately well regulated. Predominantly low-voltage fast frequency beta activities intermixed with occasional 8-9 hertz alpha activity. Background does not seem to be clearly reactive to eye opening and closing. There is frequent focal slowing in the theta range with intermittent sharp waves over the left temporal region. Drowsiness was seen with appearance of bilaterally symmetric theta frequency rhythm. Some sleep spindles were seen, suggestive of attaining stage 2 sleep. Photic driving response was seen with some flash frequencies. EKG channel showed no obvious arrhythmia. IMPRESSION: This is an abnormal EEG due to: 1. The presence of frequent focal slowing and sharp wave activity over the left temporal region. This is suggestive of focal cortical neuronal dysfunction, with underlying cortical irritability and tendency for seizures. No electrographic seizure was recorded. 2. The background was slightly suppressed with excessive low-voltage fast frequency beta activity, suggestive of medication effect. MMODL / IJN: [id number] /
== END ==
LOC: NEUROMAIN 07:43
PROVIDERS: ATTEND Psychiatry & Neurology Vascular Neurology
DX: S06.5X0A Traumatic subdural hemorrhage without loss of consciousness, initial encounter (principal)
CPT/HCPCS: 95816

== ENCOUNTER → 2022-04-27 | Outpatient (CLI) | payer MEDICARE, OTHER ==
--- NOTE | 2022-04-27 14:53 | XR ---
Left foot HISTORY: Pain 3 views of the left foot Bone mineralization, joint spaces and alignment are maintained. There is no fracture or dislocation. IMPRESSION: Normal left foot
== END | disposition home or self-care (01) ==
LOC: RADXRYALE 13:03
PROVIDERS: ATTEND Internal Medicine
DX: M79.672 Pain in left foot (principal)

== ENCOUNTER → 2023-03-05 | Outpatient (CLI) | payer MEDICARE, OTHER ==
--- NOTE | 2023-03-05 12:20 | CTL ---
EXAMINATION TYPE: CT Low Dose Lung DATE OF EXAM ORDERED: 03/05/2023 HISTORY: 72-year-old male Z87.891, presents no history of tobacco use, 57 pack-year history. Lung can cer screening CT DLP: 37.[address] CTDI: 2.20 mGy Automated exposure control for dose reduction was used. SCREENING VISIT: Baseline COMPARISON: PET/CT 06/14/2020 TECHNIQUE: Low dose computed tomography scan was performed through the chest with coronal and sagitta l reconstructions. CT DIAGNOSTIC QUALITY: Satisfactory FINDINGS: Median sternotomy wires and post-CABG clips in the mediastinum. Heart borderline enlarged without pericardial effusion. Borderline ectasia ascending aorta 3.5 cm. Mild atherosclerotic arch calcifications with conventional arch vessel branching anatomy. Enlarged caliber to the main right and left pulmonary arteries measuring up to 2.9 cm suggesting unde rlying pulmonary arterial hypertension. No thoracic lymphadenopathy by CT size criteria. Redemonstrated nodular density at the inferior lingula. Overall size at 2.0 cm in similar but there a ppears to be greater degree of soft tissue fullness along the superior margin, axial image 193. Short interval follow-up is recommended. Scattered subpleural interstitial scarring. Moderate centrilobular emphysema. Biapical pleural-parenc hymal scarring. Strandy scarring/atelectasis right base. Otherwise, no suspicious pulmonary nodule. Small hiatal hernia. Visualized upper abdomen shows no gross abnormal body. Bones: No osseous destructive process. IMPRESSION: 1. LungRADS 3, probably benign. While the overall 2.0 cm size of the inferior lingular nodular simila r, there appears to be greater degree of soft tissue fullness along the superior margin. This may ref lect progressive scarring. 6 month follow-up CT chest to ensure stability. 2. COPD with moderate emphysema and scattered interstitial scarring and fibrosis. Recommend smoking c essation. 3. Pulmonary arterial hypertension. 4. Small hiatal hernia. CT LUNG RAD AND CT CHEST RECOMMENDATION: Lung-Rad 3 Probably Benign: 6 month follow-up LDCT. S Modifier (other clinically significant findings): None
== END | disposition home or self-care (01) ==
LOC: RADCTMAIN 06:53
PROVIDERS: ATTEND Student in an Organized Health Care Education/Training Program
DX: Z12.2 Encounter for screening for malignant neoplasm of respiratory organs (principal); F17.210 Nicotine dependence, cigarettes, uncomplicated; K44.9 Diaphragmatic hernia without obstruction or gangrene; I27.21 Secondary pulmonary arterial hypertension; J43.2 Centrilobular emphysema; J98.4 Other disorders of lung; R91.1 Solitary pulmonary nodule
CPT/HCPCS: 71271

== ENCOUNTER → 2023-09-03 | Outpatient (CLI) | payer MEDICARE, OTHER ==
--- NOTE | 2023-09-06 07:37 | CT ---
EXAMINATION TYPE: CT iac wo con CT DLP: 142.70 mGycm, Automated exposure control for dose reduction was used. DATE OF EXAM: 09/03/2023 12:36 PM INDICATION: Patient age:Male; 72 years old; Reason for study: H93.19 TINNITUS H91.90 UNSPECIFIED HEARING LOSS; [facility]. COMPARISON: 02/23/2022 TECHNIQUE: Multiple thin axial images were obtained through the temporal bones and internal auditory canals. Additional coronal reformatted images were obtained. No IV contrast was utilized. CT Contrast: Contrast used: none. FINDINGS: Right Temporal Bone: External Ear: The external auditory canal is unremarkable, The tympanic membrane is present and unrem arkable. Middle Ear: The ossicles demonstrate a normal appearance. Prussak's space is clear and the scutum i s intact. There is no evidence of osseous erosion and the tegmen tympani is intact. Inner Ear: Cochlea, vestibule and semi circular canals are unremarkable. No evidence of carotid deja l dehiscence. Two and a half turns of the cochlea are identified. The vestibular aqueduct is not enl arged. Mastoid Air Cells: The mastoid air cells are clear. The tegmen mastoideum is intact. The aditus ad an trum is clear. Internal Auditory Canal: The internal auditory canal is unremarkable. Left Temporal Bone: External Ear: The external auditory canal is unremarkable, The tympanic membrane is present and unrem arkable. Middle Ear: The ossicles demonstrate a normal appearance. Prussak's space is clear and the scutum i s intact. There is no evidence of osseous erosion and the tegmen tympani is intact. Inner Ear: Cochlea, vestibule and semi circular canals are unremarkable. No evidence of carotid deja l dehiscence. Two and a half turns of the cochlea are identified. The vestibular aqueduct is not enl arged. Mastoid Air Cells: The mastoid air cells are clear. The tegmen mastoideum is intact. The aditus ad an trum is clear. Internal Auditory Canal: The internal auditory canal is unremarkable. Atherosclerosis of the intracranial vasculature. Leftward deviated nasal septum anteriorly. IMPRESSION: No abnormality within the temporal bones to correlate with patient's hearing loss.
== END | disposition home or self-care (01) ==
LOC: RADCTMAIN 12:07
PROVIDERS: ATTEND Otolaryngology
DX: H93.19 Tinnitus, unspecified ear (principal); H91.90 Unspecified hearing loss, unspecified ear
CPT/HCPCS: 70480

== ENCOUNTER 2023-12-17 15:05 | Emergency (ER) | payer MEDICARE, OTHER ==
[2023-12-17 15:37] VITALS: TEMP 98.5
--- NOTE | 2023-12-17 16:08 | ED ---
Animal Bite HPI - General Chief Complaint: Animal Bite Stated Complaint: Animal bite Time Seen by Provider: 12/17/23 15:13 Source: patient, RN notes reviewed, old records reviewed Mode of arrival: ambulatory Limitations: no limitations - History of Present Illness Initial Comments: This is a 73-year-old male to the ER for evaluation. Patient was bit by a raccoon to his lower leg while breaking up a fight with his dog. Patient has minimal bleeding from that area but no other findings. Patient does not want rabies vaccination MD Complaint: animal bite - Related Data Home Medications Medication Instructions Recorded Confirmed Aspirin [[place] Aspirin EC] 162 mg PO DAILY 11/04/18 05/18/20 Metoprolol Tartrate [Lopressor] 25 mg PO DAILY 11/04/18 05/18/20 Simvastatin [Zocor] 40 mg PO HS 11/04/18 05/18/20 lisinopriL [Zestril] 10 mg PO BID 11/04/18 05/18/20 Mirtazapine 15 mg PO HS 05/18/20 05/18/20 amLODIPine [Norvasc] 5 mg PO DAILY 05/18/20 05/18/20 clonazePAM 0.5 mg PO BID 05/18/20 05/18/20 Previous Rx's Medication Instructions Recorded Cyclobenzaprine [Flexeril] 5 mg PO TID PRN #15 tablet 05/18/20 Hydrocodone/Acetaminophen [[place] 1 tab PO Q6HR PRN #12 tab 05/18/20 5-325] predniSONE 50 mg PO DAILY #5 tab 05/18/20 Amoxic-Pot Clav 875-125Mg 1 tab PO Q12HR #20 tablet 12/17/23 [Augmentin 875-125] Allergies Allergy/AdvReac Type Severity Reaction Status Date / Time No Known Allergies Allergy Verified 12/17/23 15:11 Review of Systems ROS Statement: Those systems with pertinent positive or pertinent negative responses have been documented in the HPI. ROS Other: All systems not noted in ROS Statement are negative. Past Medical History Past Medical History: Coronary Artery Disease (CAD), Chest Pain / Angina, Hyperlipidemia, Hypertension History of Any Multi-Drug Resistant Organisms: None Reported Past Surgical History: Coronary Bypass/CABG, Orthopedic Surgery Additional Past Surgical History / Comment(s): rotator cuff Past Psychological History: No Psychological Hx Reported Smoking Status: Former smoker Past Alcohol Use History: Occasional Past Drug Use History: None Reported General Exam - General Exam Comments Initial Comments: Small wounds to ankle Limitations: no limitations General appearance: alert, in no apparent distress Head exam: Present: atraumatic, normocephalic, normal inspection Eye exam: Present: normal appearance, PERRL, EOMI. Absent: scleral icterus, conjunctival injection, periorbital swelling ENT exam: Present: normal exam, mucous membranes moist Neck exam: Present: normal inspection. Absent: tenderness, meningismus, lymphadenopathy Respiratory exam: Present: normal lung sounds bilaterally. Absent: respiratory distress, wheezes, rales, rhonchi, stridor Cardiovascular Exam: Present: regular rate, normal rhythm, normal heart sounds. Absent: systolic murmur, diastolic murmur, rubs, gallop, clicks GI/Abdominal exam: Present: soft, normal bowel sounds. Absent: distended, tenderness, guarding, rebound, rigid Extremities exam: Present: normal inspection, full ROM, normal capillary refill. Absent: tenderness, pedal edema, joint swelling, calf tenderness Back exam: Present: normal inspection Neurological exam: Present: alert, oriented X3, CN II-XII intact Psychiatric exam: Present: normal affect, normal mood Skin exam: Present: warm, dry, intact, normal color. Absent: rash Course Vital Signs 12/17/23 12/17/23 15:09 16:15 Temperature 98.5 F Pulse Rate 67 60 Respiratory 20 18 Rate Blood Pressure 157/79 148/67 O2 Sat by Pulse 99 97 Oximetry - Reevaluation(s) Reevaluation #1: Medical records reviewed Reevaluation #2: Patient symptoms unchanged Reevaluation #3: Patient informed of results and questions were answered Reevaluation #4: Was pt. sent in by a medical professional or institution (, PA, [facility] [facility], urgent care, hospital, or penitentiary...) When possible be specific @ -no Did you speak to anyone other than the patient for history (EMS, parent, family, police, friend...)? What history was obtained from this source @ -no Did you review nursing and triage notes (agree or disagree)? Why? @ -agree Are old charts reviewed (outside hosp., previous admission, EMS record, old EKG, old radiological studies, urgent care reports/EKG's, penitentiary records)? Report findings @ -yes Differential Diagnosis (chest pain, altered mental status, abdominal pain women, abdominal pain men, vaginal bleeding, weakness, fever, dyspnea, syncope, headache, dizziness, GI bleed, back pain, seizure, CVA, palpatations, mental health, musculoskeletal)? @ -prior EKG interpreted by me (3pts min.). @ -no X-rays interpreted by me (1pt min.). @ -no CT interpreted by me (1pt min.). @ -no U/S interpreted by me (1pt. min.). @ -no What testing was considered but not performed or refused? (CT, X-rays, U/S, labs)? Why? @ -none What meds were considered but not given or refused? Why? @ -none Did you discuss the management of the patient with other professionals (professionals i.e. , PA, [employer] [facility], lab, RT, psych nurse, secondary social studies teacher, linen folder, teacher, co founder and chief strategy officer, senior facilities manager)? Give summary @ -no Was smoking cessation discussed for >3mins.? @ -no Was critical care preformed (if so, how long)? @ -no Were there social determinants of health that impacted care today? How? (Homelessness, low income, unemployed, alcoholism, drug addiction, transportation, low edu. Level, literacy, decrease access to med. care, senior care, rehab)? @ -none Was there de-escalation of care discussed even if they declined (Discuss DNR or withdrawal of care, Hospice)? DNR status @ -no What co-morbidities impacted this encounter? (DM, HTN, Smoking, COPD, CAD, Cancer, CVA, ARF, Chemo, Hep., AIDS, mental health diagnosis, sleep apnea, morbid obesity)? @ -none Was patient admitted / discharged? Hospital course, mention meds given and route, prescriptions, significant lab abnormalities, going to OR and other pertinent info. @ - 73 male to ER for evaluation of raccoon bite, concern for antibiotics no acute bleeding unsure as if injury was from a bite or scratch. Patient given antibiotics and can be discharged home refusing rabies vaccination Discharge Undiagnosed new problem with uncertain prognosis? @ -no Drug Therapy requiring intensive monitoring for toxicity (Heparin, Nitro, Insulin, Cardizem)? @ -no Were any procedures done? @ -no Diagnosis/symptom? @ -Raccoon bite, animal bite versus scratch Acute, or Chronic, or Acute on Chronic? @ -Acute Uncomplicated (without systemic symptoms) or Complicated (systemic symptoms)? @ -Complicated Side effects of treatment? @ -no Exacerbation, Progression, or Severe Exacerbation? @ -exacerbation Poses a threat to life or bodily function? How? (Chest pain, [place], [place], pneumonia, PE, COPD, DKA, ARF, appy, cholecystitis, CVA, Diverticulitis, Homicidal, Suicidal, threat to staff... and all critical care pts) @ -yes if significant bite carries rabies Medical Decision Making - Medical Decision Making 73 male to ER for evaluation of raccoon bite, concern for antibiotics no acute bleeding unsure as if injury was from a bite or scratch. Patient given antibiotics and can be discharged home refusing rabies vaccination Disposition Clinical Impression: Bite by animal, Bitten by raccoon Disposition: HOME SELF-CARE Instructions (If sedation given, give patient instructions): Animal Bite (ED) Prescriptions: Amoxic-Pot Clav 875-125Mg [Augmentin 875-125] 1 tab PO Q12HR #20 tablet Is patient prescribed a controlled substance at d/c from ED?: No Referrals: Lola Badillo MD [Primary Care Provider] - 1-2 days Time of Disposition: 16:00
[2023-12-17] MEDS: AMOXIC-POT CLAV 875-125MG 1 EACH TAB PO STA (16:13)
[2023-12-17] MEDS: AMOXIC-POT CLAV 875MG STARTER PACK 2 TAB BTL PO STA (16:13)
[2023-12-17 16:33] VITALS: BP 148/67; PULSE 60; RESP 18
== END 2023-12-17 16:16 | disposition home or self-care (01) ==
LOC: EC 15:05
DX: S81.851A Open bite, right lower leg, initial encounter (principal); I10 Essential (primary) hypertension; I25.10 Atherosclerotic heart disease of native coronary artery without angina pectoris; E78.5 Hyperlipidemia, unspecified; Z79.82 Long term (current) use of aspirin; Z79.899 Other long term (current) drug therapy; Z95.1 Presence of aortocoronary bypass graft; Z87.891 Personal history of nicotine dependence; W55.51XA Bitten by raccoon, initial encounter
CPT/HCPCS: 99283

== ENCOUNTER 2024-02-06 08:21 | Inpatient (IN) | payer MEDICARE, OTHER ==
--- NOTE | 2024-02-06 08:39 | ED ---
General Adult HPI - General Chief complaint: Shortness of Breath Stated complaint: SOB,Coughing blood Time Seen by Provider: 02/06/24 08:29 Source: patient, RN notes reviewed Mode of arrival: ambulatory Limitations: no limitations - History of Present Illness Initial comments: Patient is a pleasant 73-year-old male present to the emergency department with hemoptysis and dyspnea. Patient has had dyspnea slowly progressive over the past several weeks. Patient has felt warm and cold over the past couple of days. Patient had 3 episodes of small amount of hemoptysis this morning. Patient otherwise has not been coughing all that much. - Related Data Home Medications Medication Instructions Recorded Confirmed Metoprolol Tartrate [Lopressor] 25 mg PO DAILY 11/04/18 02/06/24 Simvastatin [Zocor] 40 mg PO HS 11/04/18 02/06/24 ALPRAZolam [Xanax] 0.5 mg PO HS 02/06/24 02/06/24 Mirtazapine [Remeron] 30 mg PO HS 02/06/24 02/06/24 PARoxetine HCL [Paxil] 40 mg PO DAILY 02/06/24 02/06/24 amLODIPine [Norvasc] 10 mg PO DAILY 02/06/24 02/06/24 busPIRone HCL 15 mg PO BID 02/06/24 02/06/24 lisinopriL [Zestril] 20 mg PO BID 02/06/24 02/06/24 Allergies Allergy/AdvReac Type Severity Reaction Status Date / Time No Known Allergies Allergy Verified 02/06/24 09:34 Review of Systems ROS Statement: Those systems with pertinent positive or pertinent negative responses have been documented in the HPI. ROS Other: All systems not noted in ROS Statement are negative. Constitutional: Reports: as per HPI, chills Eyes: Denies: eye pain ENT: Denies: ear pain Respiratory: Reports: as per HPI, cough, dyspnea, hemoptysis Cardiovascular: Denies: chest pain Endocrine: Denies: fatigue Gastrointestinal: Denies: abdominal pain Musculoskeletal: Denies: back pain Past Medical History Past Medical History: Coronary Artery Disease (CAD), Chest Pain / Angina, Hyperlipidemia, Hypertension History of Any Multi-Drug Resistant Organisms: None Reported Past Surgical History: Coronary Bypass/CABG, Orthopedic Surgery Additional Past Surgical History / Comment(s): rotator cuff Past Psychological History: No Psychological Hx Reported Smoking Status: Former smoker, Vaper Past Alcohol Use History: Occasional Past Drug Use History: None Reported General Exam Limitations: no limitations General appearance: alert, in no apparent distress Head exam: Present: normocephalic Eye exam: Present: normal appearance ENT exam: Present: normal oropharynx Neck exam: Present: normal inspection Respiratory exam: Present: normal lung sounds bilaterally Cardiovascular Exam: Present: regular rate, normal rhythm GI/Abdominal exam: Present: soft. Absent: tenderness, guarding Extremities exam: Present: normal inspection. Absent: pedal edema, calf tend erness Neurological exam: Present: alert Psychiatric exam: Present: normal affect, normal mood Skin exam: Present: normal color Course Vital Signs 02/06/24 02/06/24 08:24 09:30 Temperature 100.8 F H Pulse Rate 60 72 Respiratory 22 18 Rate Blood Pressure 199/80 157/68 O2 Sat by Pulse 94 L 93 L Oximetry EKG Findings - EKG Results: EKG: interpreted by ERMD (Right bundle branch block. Nonspecific T waves. LVH.), sinus rhythm, normal axis Medical Decision Making - Medical Decision Making Was pt. sent in by a medical professional or institution (, PA, [facility], urgent care, hospital, or long-term...) When possible be specific @ -No Did you speak to anyone other than the patient for history (EMS, parent, family, police, friend...)? What history was obtained from this source @ - is present and helps provide history including onset of symptoms Did you review nursing and triage notes (agree or disagree)? Why? @ -I reviewed and agree with nursing and triage notes Were old charts reviewed (outside hosp., previous admission, EMS record, old EKG, old radiological studies, urgent care reports/EKG's, long-term records)? Report findings @ -Previous chest x-ray reviewed Differential Diagnosis (chest pain, altered mental status, abdominal pain women, abdominal pain men, vaginal bleeding, weakness, fever, dyspnea, syncope, headache, dizziness, GI bleed, back pain, seizure, CVA, palpatations, mental health, musculoskeletal)? @ -Differential Dyspnea: Coronary syndrome, arrhythmia, tamponade, asthma, COPD, pulmonary embolism, pneumonia, pneumothorax, pulmonary effusion, anaphylaxis, diabetic ketoacidosis, flailed chest, pulmonary contusion, diaphragmatic rupture, anemia, neuromuscular, this is not meant to be an all-inclusive list. EKG interpreted by me (3pts min.). @ -As above X-rays interpreted by me (1pt min.). @ -Chest x-ray shows right-sided infiltrate CT interpreted by me (1pt min.). @ -CT scan ordered and pending U/S interpreted by me (1pt. min.). @ -None done What testing was considered but not performed or refused? (CT, X-rays, U/S, labs)? Why? @ -Consider CT scan and this has been ordered What meds were considered but not given or refused? Why? @ -None Did you discuss the management of the patient with other professionals (professionals i.e. DrSweetie, PA, [employer] [facility], lab, RT, psych nurse, social services technician, pricing consultant, teacher, special technical operations officer, employment case manager)? Give summary @ -Case discussed with Dr. Benson will admit covering Dr. Pelayo. It was determined patient primary care physician is different and Dr. Gilman has been paged for admission. Case also discussed with Dr. Ndiaye who did evaluate in the emergency department Was smoking cessation discussed for >3mins.? @ -No Was critical care preformed (if so, how long)? @ -1 minutes critical care time Were there social determinants of health that impacted care today? How? (Homelessness, low income, unemployed, alcoholism, drug addiction, transportation, low edu. Level, literacy, decrease access to med. care, snf, rehab)? @ -No Was there de-escalation of care discussed even if they declined (Discuss DNR or withdrawal of care, Hospice)? DNR status @ -No What co-morbidities impacted this encounter? (DM, HTN, Smoking, COPD, CAD, [place] cer, CVA, ARF, Chemo, Hep., AIDS, mental health diagnosis, sleep apnea, morbid obesity)? @ -None Was patient admitted / discharged? Hospital course, mention meds given and route, prescriptions, significant lab abnormalities, going to OR and other pertinent info. @ -Patient presents with hemoptysis right-sided infiltrate. There is concern for sepsis diagnosed at 9:50 AM. Blood culture lactic acid and IV antibiotics have all been ordered. Patient will be admitted. Admission orders written. Undiagnosed new problem with uncertain prognosis? @ -No Drug Therapy requiring intensive monitoring for toxicity (Heparin, Nitro, Insulin, Cardizem)? @ -No Were any procedures done? @ -No Diagnosis/symptom? @ -Pneumonia, sepsis, hemoptysis Acute, or Chronic, or Acute on Chronic? @ -Acute, acute, acute Uncomplicated (without systemic symptoms) or Complicated (systemic symptoms)? @ -Default Side effects of treatment? @ -No Exacerbation, Progression, or Severe Exacerbation? @ -No Poses a threat to life or bodily function? How? (Chest pain, [place], [place], pneumonia, PE, COPD, DKA, ARF, appy, cholecystitis, CVA, Diverticulitis, Homicidal, Suicidal, threat to staff... and all critical care pts) @ -No - Lab Data Result diagrams: 02/06/24 08:48 02/06/24 08:48 Lab Results 02/06/24 02/06/24 02/06/24 Range/Units 08:48 08:48 08:48 WBC 22.5 H (3.8-10.6) k/uL RBC 4.63 (4.30-5.90) m/uL Hgb 14.4 (13.0-17.5) gm/dL Hct 43.1 (39.0-53.0) % MCV 93.3 (80.0-100.0) fL MCH 31.2 (25.0-35.0) pg MCHC 33.4 (31.0-37.0) g/dL RDW 13.7 (11.5-15.5) % Plt Count 249 (150-450) k/uL MPV 8.7 Neutrophils % 90 % Lymphocytes % 4 % Monocytes % 3 % Eosinophils % 2 % Basophils % 0 % Neutrophils # 20.2 H (1.3-7.7) k/uL Lymphocytes # 0.9 L (1.0-4.8) k/uL Monocytes # 0.7 (0-1.0) k/uL Eosinophils # 0.5 (0-0.7) k/uL Basophils # 0.1 (0-0.2) k/uL PT 10.7 (10.0-12.5) sec INR 1.0 (<1.2) APTT 24.7 (22.0-30.0) sec D-Dimer 1.81 H (<0.60) mg/L FEU Sodium 136 L (137-145) mmol/L Potassium 4.0 (3.5-5.1) mmol/L Chloride 105 (98-107) mmol/L Carbon Dioxide 23 (22-30) mmol/L Anion Gap 8 mmol/L BUN 17 (9-20) mg/dL Creatinine 0.90 (0.66-1.25) mg/dL Est GFR (CKD-EPI)AfAm >90 (>60 ml/min/1.73 sqM) Est GFR (CKD-EPI)NonAf 83 (>60 ml/min/1.73 sqM) Glucose 135 H (74-99) mg/dL Plasma Lactic Acid James (0.7-2.0) mmol/L Calcium 9.0 (8.4-10.2) mg/dL Magnesium 1.8 (1.6-2.3) mg/dL Total Bilirubin 0.7 (0.2-1.3) mg/dL AST 25 (17-59) U/L ALT 23 (4-49) U/L Alkaline Phosphatase 117 (38-126) U/L Troponin I (0.000-0.034) ng/mL Total Protein 6.6 (6.3-8.2) g/dL Albumin 4.0 (3.5-5.0) g/dL Influenza Type A (PCR) (Not Detectd) Influenza Type B (PCR) (Not Detectd) RSV (PCR) (Not Detectd) SARS-CoV-2 (PCR) (Not Detectd) 02/06/24 02/06/24 02/06/24 Range/Units 08:48 08:48 08:48 WBC (3.8-10.6) k/uL RBC (4.30-5.90) m/uL Hgb (13.0-17.5) gm/dL Hct (39.0-53.0) % MCV (80.0-100.0) fL MCH (25.0-35.0) pg MCHC (31.0-37.0) g/dL RDW (11.5-15.5) % Plt Count (150-450) k/uL MPV Neutrophils % % Lymphocytes % % Monocytes % % Eosinophils % % Basophils % % Neutrophils # (1.3-7.7) k/uL Lymphocytes # (1.0-4.8) k/uL Monocytes # (0-1.0) k/uL Eosinophils # (0-0.7) k/uL Basophils # (0-0.2) k/uL PT (10.0-12.5) sec INR (<1.2) APTT (22.0-30.0) sec D-Dimer (<0.60) mg/L FEU Sodium (137-145) mmol/L Potassium (3.5-5.1) mmol/L Chloride (98-107) mmol/L Carbon Dioxide (22-30) mmol/L Anion Gap mmol/L BUN (9-20) mg/dL Creatinine (0.66-1.25) mg/dL Est GFR (CKD-EPI)AfAm (>60 ml/min/1.73 sqM) Est GFR (CKD-EPI)NonAf (>60 ml/min/1.73 sqM) Glucose (74-99) mg/dL Plasma Lactic Acid James 1.6 (0.7-2.0) mmol/L Calcium (8.4-10.2) mg/dL Magnesium (1.6-2.3) mg/dL Total Bilirubin (0.2-1.3) mg/dL AST (17-59) U/L ALT (4-49) U/L Alkaline Phosphatase (38-126) U/L Troponin I 0.065 H* (0.000-0.034) ng/mL Total Protein (6.3-8.2) g/dL Albumin (3.5-5.0) g/dL Influenza Type A (PCR) Not Detected (Not Detectd) Influenza Type B (PCR) Not Detected (Not Detectd) RSV (PCR) Not Detected (Not Detectd) SARS-CoV-2 (PCR) Not Detected (Not Detectd) Critical Care Time Critical Care Time: Yes Total Critical Care Time: 31 Disposition Clinical Impression: Pneumonia, Sepsis, Hemoptysis Disposition: ADMITTED IP TO THIS HOSP Condition: Serious Is patient prescribed a controlled substance at d/c from ED?: No Referrals: Robb Rodriguez DO [REFERRING] - 1-2 days Time of Disposition: 09:51
[2024-02-06 09:04] LABS: Basophils # (A) 0.1 k/uL (0-0.2); Basophils % (A) 0 %; Eosinophils # (A) 0.5 k/uL (0-0.7); Eosinophils % (A) 2 %; HCT 43.1 % (39.0-53.0); HGB 14.4 gm/dL (13.0-17.5); Lymphocytes # (A) 0.9 k/uL (1.0-4.8); Lymphocytes % (A) 4 %; MCH 31.2 pg (25.0-35.0); MCHC 33.4 g/dL (31.0-37.0); MCV 93.3 fL (80.0-100.0); Mean Platelet Volume 8.7; Monocytes # (A) 0.7 k/uL (0-1.0); Monocytes % (A) 3 %; Neutrophils # (A) 20.2 k/uL (1.3-7.7); Neutrophils % (A) 90 %; Platelet Count 249 k/uL (150-450); RBC 4.63 m/uL (4.30-5.90); RDW 13.7 % (11.5-15.5); WBC 22.5 k/uL (3.8-10.6)
[2024-02-06] MEDS: ACETAMINOPHEN TAB 500 MG TAB PO STA (09:15)
[2024-02-06 09:16] LABS: ALT 23 U/L (4-49); AST 25 U/L (17-59); African American GFR (CKD) >90 (>60 ml/min/1.73 sqM); Alkaline Phosphatase 117 U/L (38-126); Anion Gap 8 mmol/L; Blood Urea Nitrogen 17 mg/dL (9-20); Carbon Dioxide 23 mmol/L (22-30); Chloride 105 mmol/L (98-107); Glucose 135 mg/dL (74-99); Magnesium 1.8 mg/dL (1.6-2.3); Non-African American GFR(CKD) 83 (>60 ml/min/1.73 sqM); Sodium 136 mmol/L (137-145); Total Bilirubin 0.7 mg/dL (0.2-1.3); Total Protein 6.6 g/dL (6.3-8.2)
[2024-02-06 09:17] LABS: Partial Thromboplastin Time 24.7 sec (22.0-30.0); Prothrombin Time 10.7 sec (10.0-12.5)
[2024-02-06] MEDS: PIPERACILLIN-TAZOBACTAM 3.375 GM in SODIUM CHLORIDE 0.9% 100 ML IVPB SCH (09:29)
--- NOTE | 2024-02-06 09:40 | XR ---
EXAMINATION TYPE: XR chest 2V DATE OF EXAM: 02/06/2024 COMPARISON: 11/04/2018 INDICATION: Chest pain TECHNIQUE: Frontal and lateral views of the chest are obtained. FINDINGS: The heart size is normal. The pulmonary vasculature is normal. Patchy infiltrates throughout the right lung.. IMPRESSION: 1. Patchy infiltrates in the right lung field. Correlate for pneumonia. Follow-up is recommended
[2024-02-06] MEDS ORDERED: PNEUMONIA PROTOCOL UTILIZED 1 EACH MISC PO PRN (09:52)
[2024-02-06] MEDS: SODIUM CHLORIDE 0.9% 1,000 ML IV SCH (10:26)
--- NOTE | 2024-02-06 10:27 | CT ---
CTA CHEST EXAMINATION TYPE: CT angio chest DATE OF EXAM: 02/06/2024 INDICATION: hemoptysis CT DLP: 298.2 mGycm, Automated exposure control for dose reduction was used. CONTRAST: Patient injected with 70 mL of Isovue 370. COMPARISON: 11/29/2020 TECHNIQUE: CT of the chest is performed on a spiral scan at 2 mm thick sections. Study is performed with intravenous contrast timed for evaluation for pulmonary embolism. This will limit additional po rtions of the evaluation. 3-D MIP images reconstructed by the technologist are reviewed on the compu ter in the coronal and sagittal planes. FINDINGS: No persistent filling defects are evident to suggest an acute pulmonary embolism. No mediastinal or hilar adenopathy enlarged by CT criteria is evident. The ascending aorta diameter at the level of the main pulmonary artery is 3.1 cm. The main pulmonary artery diameter at the bifurcation is 2.5 cm. Patchy infiltrates are through the right lung field. Some minimal scattered infiltrates on the left. Findings are nonspecific. Correlate for atypical pneumonia. Underlying masses is not excluded. Nodula rity in the lingula was present on prior examination. Limited CT sections were through the upper abdomen. Upper abdomen appears unremarkable. IMPRESSION: 1. Patchy infiltrates predominantly within the right lung. Correlate for atypical pneumonia. 2. No acute pulmonary embolism
[2024-02-06] MEDS: PARoxetine 20 MG TAB PO SCH (11:47)
[2024-02-06] MEDS: lisinopriL 20 MG TAB PO SCH (11:48)
[2024-02-06] MEDS: amLODIPine 10 MG TAB PO SCH (11:48)
[2024-02-06] MEDS: METOPROLOL TARTRATE 25 MG TAB PO SCH (11:48)
--- NOTE | 2024-02-06 13:20 | P.CNPUL ---
History of Present Illness Consult date: 02/06/24 Requesting physician: Gustavo Vick Reason for consult: other (Hemoptysis) Chief complaint: Coughing up blood History of present illness: This is a pleasant 73-year-old male patient with a known history of anxiety, depression, former heavy smoker, vaping, hypertension, hyperlipidemia, CVA, coronary artery disease with previous coronary artery bypass grafting s. He presented to the emergency room this morning after having 3 episodes of coughing up proximately tablespoon of bright red blood. He did have some chills and shortness of breath. X-ray reveals patchy infiltrate in the right lung. ET angiogram ruled out pulmonary embolism. There is again noted patchy infiltrates predominantly within the right lung. Possible atypical pneumonia. Does have a Tmax of 100.8. White count 22.5. Hemoglobin 14.4. Platelets 249. Sodium 136. Potassium 4.0. Bicarb 23. BUN 17. Creatinine 0.90. Glucose 135. Troponin 0.065. Viral screen negative. He is seen today in consultation in the emerg ency department. Currently sitting up on the stretcher. Awake and alert in no acute distress. No hemoptysis currently. Maintaining good O2 saturations in the 90s on 3 L/min per nasal cannula. Has been hemodynamically stable. Review of Systems REVIEW OF SYSTEMS: CONSTITUTIONAL: Positive for chills. Denies any recent significant weight loss or weight gain. EYES: Denies change in vision. EARS, NOSE, MOUTH, THROAT: Denies headaches, denies sore throat. CARDIOVASCULAR: Denies chest pain, palpitations or syncopal episodes. RESPIRATORY: Positive for shortness of breath, cough, congestion and hemoptysis. GASTROINTESTINAL: Denies change in appetite, denies abdominal pain GENITOURINARY: Denies hematuria, denies infections. MUSKULOSKELETAL: Denies pain, denies swelling. INTEGUMENTARY: Denies rash, denies eczema. NEUROLOGICAL: Denies recent memory loss, no recent seizure activity. PSYCHIATRIC: Denies anxiety, denies depression. HEMATOLOGIC/LYMPHATIC: Denies anemia, denies enlarged lymph nodes. Past Medical History Past Medical History: Coronary Artery Disease (CAD), Chest Pain / Angina, Hyperlipidemia, Hypertension History of Any Multi-Drug Resistant Organisms: None Reported Past Surgical History: Coronary Bypass/CABG, Orthopedic Surgery Additional Past Surgical History / Comment(s): rotator cuff Past Psychological History: No Psychological Hx Reported Smoking Status: Former smoker, Vaper Past Alcohol Use History: Occasional Past Drug Use History: None Reported Medications and Allergies Home Medications Medication Instructions Recorded Confirmed Type Metoprolol Tartrate [Lopressor] 25 mg PO DAILY 11/04/18 02/06/24 History Simvastatin [Zocor] 40 mg PO HS 11/04/18 02/06/24 History ALPRAZolam [Xanax] 0.5 mg PO HS 02/06/24 02/06/24 History Mirtazapine [Remeron] 30 mg PO HS 02/06/24 02/06/24 History PARoxetine HCL [Paxil] 40 mg PO DAILY 02/06/24 02/06/24 History amLODIPine [Norvasc] 10 mg PO DAILY 02/06/24 02/06/24 History busPIRone HCL 15 mg PO BID 02/06/24 02/06/24 History lisinopriL [Zestril] 20 mg PO BID 02/06/24 02/06/24 History Allergies Allergy/AdvReac Type Severity Reaction Status Date / Time No Known Allergies Allergy Verified 02/06/24 09:34 Physical Exam Vitals: Vital Signs Temp Pulse Resp BP Pulse Ox 02/06/24 11:38 72 18 128/55 96 02/06/24 10:29 92 L 02/06/24 10:27 100.8 F H 70 18 127/54 86 L 02/06/24 09:30 72 18 157/68 93 L 02/06/24 08:24 100.8 F H 60 22 199/80 94 L Intake and Output 02/05/24 02/06/24 02/06/24 22:59 06:59 14:59 Other: Weight 71.668 kg GENERAL EXAM: Alert, pleasant 73-year-old male, on 3 L nasal cannula, comfortable in no apparent distress. HEAD: Normocephalic. EYES: Normal reaction of pupils, equal size. NOSE: Clear with pink turbinates. THROAT: No erythema or exudates. NECK: No masses, no JVD. CHEST: No chest wall deformity. LUNGS: Equal air entry with scattered rhonchi over the right lung. CVS: S1 and S2 normal with no audible murmur, regular rhythm. ABDOMEN: No hepatosplenomegaly, normal bowel sounds, no guarding or rigidity. SPINE: No scoliosis or deformity SKIN: No rashes CENTRAL NERVOUS SYSTEM: No focal deficits, tone is normal in all 4 extremities. EXTREMITIES: There is no peripheral edema. No clubbing, no cyanosis. Peripheral pulses are intact. Results - Laboratory Findings CBC and BMP: 02/06/24 08:48 02/06/24 08:48 PT/INR, D-dimer PT 10.7 sec (10.0-12.5) 02/06/24 08:48 INR 1.0 (<1.2) 02/06/24 08:48 D-Dimer 1.81 mg/L FEU (<0.60) H 02/06/24 08:48 Abnormal lab findings: Abnormal Labs 02/06/24 02/06/24 02/06/24 08:48 08:48 08:48 WBC 22.5 H Neutrophils # 20.2 H Lymphocytes # 0.9 L D-Dimer 1.81 H Sodium 136 L Glucose 135 H Troponin I 02/06/24 08:48 WBC Neutrophils # Lymphocytes # D-Dimer Sodium Glucose Troponin I 0.065 H* - Diagnostic Findings Chest x-ray: image reviewed CT scan - chest: image reviewed Assessment and Plan Assessment: Acute hypoxemic respiratory failure secondary to possible community-acquired pneumonia, cannot rule out underlying malignancy. Pulmonary embolism ruled out Hemoptysis secondary to above Febrile illness secondary to above Leukocytosis secondary to above Former heavy smoker, vaping Coronary artery disease with previous coronary artery bypass grafting Hypertension Hyperlipidemia Anxiety/depression History of CVA Plan: The patient was seen and evaluated CT angiogram, chest x-ray, labs and medications reviewed Add Zosyn Continue saline at 100 MLS per hour Acetaminophen for fever Will need bronchoscopy for further evaluation We will continue to follow and make further recommendations based on his clinical status I have personally seen and examined the patient, performed the documentation and the assessment and plan as written. Number of minutes spent on the visit: 20.
--- NOTE | 2024-02-06 14:21 | P.HPIM ---
History of Present Illness H&P Date: 02/06/24 Chief Complaint: Shortness of breath 73-year-old male, history of hypertension, hyperlipidemia, coronary artery disease, present to the emergency department with hemoptysis and dyspnea. Patient has had dyspnea slowly progressive over the past several weeks. Patient has felt warm and cold over the past couple of days. Patient had 3 episodes of small amount of hemoptysis this morning. Patient otherwise has not been coughing all that much. X-ray reveals patchy infiltrate in the right lung. ET angiogram ruled out pulmonary embolism. There is again noted patchy infiltrates predominantly within the right lung. Possible atypical pneumonia. Does have a Tmax of 100.8. White count 22.5. Hemoglobin 14.4. Platelets 249. Sodium 136. Potassium 4.0. Bicarb 23. BUN 17. Creatinine 0.90. Glucose 135. Troponin 0.065. Viral screen negative. Review of Systems REVIEW OF SYSTEMS: CONSTITUTIONAL: No fever, no malaise, no fatigue. HEENT: No recent visual problems or hearing problems. Denied any sore throat. CARDIOVASCULAR: No chest pain, orthopnea, PND, no palpitations, no syncope. PULMONARY: No shortness of breath, no cough, no hemoptysis. GASTROINTESTINAL: No diarrhea, no nausea, no vomiting, no abdominal pain. NEUROLOGICAL: No headaches, no weakness, no numbness. HEMATOLOGICAL: Denies any bleeding or petechiae. GENITOURINARY: Denies any burning micturition, frequency, or urgency. MUSCULOSKELETAL/RHEUMATOLOGICAL: Denies any joint pain, swelling, or any muscle pain. ENDOCRINE: Denies any polyuria or polydipsia. The rest of the 14-point review of systems is negative. Past Medical History Past Medical History: Coronary Artery Disease (CAD), Chest Pain / Angina, Hyperlipidemia, Hypertension History of Any Multi-Drug Resistant Organisms: None Reported Past Surgical History: Coronary Bypass/CABG, Orthopedic Surgery Additional Past Surgical History / Comment(s): rotator cuff Past Psychological History: No Psychological Hx Reported Smoking Status: Former smoker, Vaper Past Alcohol Use History: Occasional Past Drug Use History: None Reported Medications and Allergies Home Medications Medication Instructions Recorded Confirmed Type Metoprolol Tartrate [Lopressor] 25 mg PO DAILY 11/04/18 02/06/24 History Simvastatin [Zocor] 40 mg PO HS 11/04/18 02/06/24 History ALPRAZolam [Xanax] 0.5 mg PO HS 02/06/24 02/06/24 History Mirtazapine [Remeron] 30 mg PO HS 02/06/24 02/06/24 History PARoxetine HCL [Paxil] 40 mg PO DAILY 02/06/24 02/06/24 History amLODIPine [Norvasc] 10 mg PO DAILY 02/06/24 02/06/24 History busPIRone HCL 15 mg PO BID 02/06/24 02/06/24 History lisinopriL [Zestril] 20 mg PO BID 02/06/24 02/06/24 History Allergies Allergy/AdvReac Type Severity Reaction Status Date / Time No Known Allergies Allergy Verified 02/06/24 09:34 Physical Exam Vitals: Vital Signs Temp Pulse Resp BP Pulse Ox 02/06/24 10:29 92 L 02/06/24 10:27 100.8 F H 70 18 127/54 86 L 02/06/24 09:30 72 18 157/68 93 L 02/06/24 08:24 100.8 F H 60 22 199/80 94 L Intake and Output 02/05/24 02/06/24 02/06/24 22:59 06:59 14:59 Other: Weight 71.668 kg GENERAL EXAM: Alert, pleasant 73-year-old male, on 3 L nasal cannula, comfortable in no apparent distress. HEAD: Normocephalic. EYES: Normal reaction of pupils, equal size. NOSE: Clear with pink turbinates. THROAT: No erythema or exudates. NECK: No masses, no JVD. CHEST: No chest wall deformity. LUNGS: Equal air entry with scattered rhonchi over the right lung. CVS: S1 and S2 normal with no audible murmur, regular rhythm. ABDOMEN: No hepatosplenomegaly, normal bowel sounds, no guarding or rigidity. CENTRAL NERVOUS SYSTEM: No focal deficits, tone is normal in all 4 extremities. EXTREMITIES: There is no peripheral edema. No clubbing, no cyanosis. Peripheral pulses are intact. Results CBC & Chem 7: 02/06/24 08:48 02/06/24 08:48 Labs: Abnormal Lab Results - Last 24 Hours (Table) 02/06/24 02/06/24 02/06/24 Range/Units 08:48 08:48 08:48 WBC 22.5 H (3.8-10.6) k/uL Neutrophils # 20.2 H (1.3-7.7) k/uL Lymphocytes # 0.9 L (1.0-4.8) k/uL D-Dimer 1.81 H (<0.60) mg/L FEU Sodium 136 L (137-145) mmol/L Glucose 135 H (74-99) mg/dL Troponin I (0.000-0.034) ng/mL 02/06/24 Range/Units 08:48 WBC (3.8-10.6) k/uL Neutrophils # (1.3-7.7) k/uL Lymphocytes # (1.0-4.8) k/uL D-Dimer (<0.60) mg/L FEU Sodium (137-145) mmol/L Glucose (74-99) mg/dL Troponin I 0.065 H* (0.000-0.034) ng/mL Assessment and Plan Assessment: 1. Acute hypoxemic respiratory failure -Likely related to community-acquired pneumonia; patient will need to be ruled out for malignancy, given hypoxic respiratory failure and hemoptysis 2. Community-acquired pneumonia -Patient has been placed on IV Zosyn; continue with current bronchodilator thera py -- Sputum culture and blood cultures have been ordered; adjust antibiotics accordingly -We will monitor CBC, CRP and procalcitonin 3. Hemoptysis; could be associated with community-acquired pneumonia; malignancy will need to to be ruled out -- Pulmonary service on board; possibility of bronchoscopy for further evaluation this admission 4. Hypertension; lisinopril 40 mg twice daily; amlodipine 10 mg daily; metoprolol 25 mg daily 5. Hyperlipidemia; simvastatin 40 mg nightly 6. History of coronary artery disease; patient is status post CABG; patient takes statins and beta-blockers 7. History of CVA; continue with Zocor 40 mg nightly; hold off on aspirin given hemoptysis 8. Anxiety/depression; Paxil 40 mg daily; Remeron 30 mg p.o. nightly DVT prophylaxis; SCDs only, given hemoptysis CODE STATUS; full code
[2024-02-06] MEDS: busPIRone HCl 5 MG TAB PO SCH (21:37)
[2024-02-06] MEDS: ATORVASTATIN 20 MG TAB PO SCH (21:37)
[2024-02-06] MEDS: ALPRAZolam 0.5 MG TAB PO SCH (21:38)
[2024-02-06] MEDS: MIRTAZAPINE 15 MG TAB PO SCH (21:38)
--- NOTE | 2024-02-07 08:36 | XR ---
EXAMINATION TYPE: XR chest 2V DATE OF EXAM: 02/07/2024 6:37 AM CLINICAL INDICATION:Male, 73 years old with history of pneumonia; [facility] COMPARISON: Chest radiographs from 02/06/2024 TECHNIQUE: XR chest 2V Frontal and lateral views of the chest. FINDINGS: Lungs/Pleura: Similar multifocal airspace opacities. No evidence of pneumothorax or pleural effusion. Pulmonary vascularity: Unremarkable. Heart/mediastinum: Cardiomediastinal silhouette is unremarkable. Musculoskeletal: No acute osseous pathology. Midline sternotomy wires are noted. IMPRESSION: Similar multifocal airspace opacities.
[2024-02-07 08:43] LABS: Basophils # (A) 0.04 X 10*3/uL (0.00-0.10); Basophils % (A) 0.2 %; Eosinophils # (A) 0.12 X 10*3/uL (0.04-0.35); Eosinophils % (A) 0.7 %; HCT 37.3 % (39.6-50.0); Lymphocytes # (A) 1.86 X 10*3/uL (0.90-5.00); Lymphocytes % (A) 11.1 %; MCH 30.2 pg (27.0-32.0); MCHC 32.2 g/dL (32.0-37.0); Mean Platelet Volume 10.7 FL (9.5-12.2); Monocytes # (A) 1.19 X 10*3/uL (0.20-1.00); Monocytes % (A) 7.1 %; NRBC Per 100 WBC 0 X 10*3/uL (0.00-0.01); Neutrophils % (A) 80.4 %; Platelet Count 230 X 10*3/uL (140-440); RBC 3.97 X 10*6/uL (4.40-5.60); RDW 13.9 % (11.5-14.5); WBC 16.79 X 10*3/uL (4.50-10.00)
[2024-02-07] MEDS: IPRATROPIUM-ALBUTEROL 3 ML NEB INHALATION PRN (08:45)
[2024-02-07] MEDS ORDERED: fentaNYL (PF) 50 MCG/ML 2 ML AMP ONE (09:10)
[2024-02-07] MEDS ORDERED: LIDOCAINE 1% INJ 10MG/ML (20 ML MDV) ONE (09:10)
[2024-02-07] MEDS ORDERED: PROPOFOL 10 MG/ML 20 ML VIAL IV ONE (09:10)
[2024-02-07 09:25] LABS: Blood Urea Nitrogen 16.2 mg/dL (9.0-27.0); Calcium 8.4 mg/dL (8.7-10.3); Chloride 105 mmol/L (96-109); Glucose 100 mg/dL (70-110); Potassium 4.1 mmol/L (3.5-5.5); Sodium 140 mmol/L (135-145)
[2024-02-07] MEDS: LACTATED RINGERS 1,000 ML IV ONE (09:29)
--- NOTE | 2024-02-07 09:44 | OP ---
OPERATIVE REPORT DATE OF SERVICE : PROCEDURE PERFORMED: Bronchoscopy, airway examination, therapeutic lavage, BAL, right middle lobe. PREOPERATIVE DIAGNOSIS: Hemoptysis. POSTOPERATIVE DIAGNOSIS: Hemoptysis. There was informed consent and universal timeout. The patient's procedure took place in [facility] room #1. FIRST ADVERTISING EDITOR: Nuria Gaston. ANESTHESIA: Provided general anesthesia. DESCRIPTION OF PROCEDURE: After the patient was adequately sedated and being fully monitored, the bronchoscope was inserted through the right nostril. It passed through the right nasopharynx into the oropharynx. The hypopharynx was identified. There were some thick secretions noted in the hypopharynx. They were suctioned without difficulty. The hypopharyngeal structures, including anterior commissure, true cords, false cords, arytenoids, piriform sinuses, right and left, vallecula, epiglottis, all appeared normal. The glottic opening was topicalized, and the bronchoscope was pushed through the glottic opening into the trachea. Trachea appeared normal. Tracheal lisa was sharp. The right and left mainstem were topicalized. We did a thorough evaluation of both lungs, including the right upper lobe and its three segments, right middle lobe and its two segments, right lower lobe and its five segments, left upper lobe proper and its two segments, lingula and its two segments, and left lower lobe and its four segments. There was no active bleeding. There was no endobronchial lesion. There was no tumor. There were secretions noted throughout. They were purulent looking. They were mostly noted on the right side. We then wedged the bronchoscope into the right middle lobe. We did a formal BAL of the right middle lobe. 30 mL of turbid fluid was recovered. There was no immediate complication. Afterwards, additional secretions were suctioned and the bronchoscope was withdrawn. The patient will be recovered. There was no immediate complication. The patient tolerated the procedure well. MMODL / IJN: [id number] /
--- NOTE | 2024-02-07 12:21 | P.PN ---
Subjective 73-year-old male, history of hypertension, hyperlipidemia, coronary artery disease, present to the emergency department with hemoptysis and dyspnea. Patient has had dyspnea slowly progressive over the past several weeks. Patient has felt warm and cold over the past couple of days. Patient had 3 episodes of small amount of hemoptysis this morning. Patient otherwise has not been coughing all that much. X-ray reveals patchy infiltrate in the right lung. ET angiogram ruled out pulmonary embolism. There is again noted patchy infiltrates predominantly within the right lung. Possible atypical pneumonia. Does have a Tmax of 100.8. White count 22.5. Hemoglobin 14.4. Platelets 249. Sodium 136. Potassium 4.0. Bicarb 23. BUN 17. Creatinine 0.90. Glucose 135. Troponin 0.065. Viral screen negative. 02/07/2024 Patient is awake and alert His dyspnea is better, mild occasional cough and He has bronchoscopy today showing purulent secretion in the right lung, no obvious lesion or tumor, sputum culture is pending Currently covered with [employer]. Review of systems CONSTITUTIONAL: No fever, no malaise, no fatigue. HEENT: No recent visual problems or hearing problems. Denied any sore throat. CARDIOVASCULAR: No orthopnea, PND, no palpitations, no syncope. HEMATOLOGICAL: Denies any bleeding or petechiae. GENITOURINARY: Denies any burning micturition, frequency, or urgency. MUSCULOSKELETAL/RHEUMATOLOGICAL: Denies any joint pain, swelling, or any muscle pain. ENDOCRINE: Denies any polyuria or polydipsia. Active Medications Generic Name Dose Route Start Last Admin Trade Name Freq PRN Reason Stop Dose Admin Albuterol/Ipratropium 3 ml 02/06/24 09:52 02/07/24 08:45 Ipratropium-Albuterol 3 Ml Neb INHALATION 3 ml RT-Q4H PRN Administration shortness of breath Alprazolam 0.5 mg 02/06/24 21:00 02/06/24 21:38 Alprazolam 0.5 Mg Tab PO 0.5 mg HS EDY Administration Amlodipine Besylate 10 mg 02/06/24 11:45 02/07/24 08:16 Amlodipine 10 Mg Tab PO 10 mg DAILY EDY Administration Atorvastatin Calcium 20 mg 02/06/24 21:00 02/06/24 21:37 Atorvastatin 20 Mg Tab PO 20 mg HS EDY Administration Buspirone HCl 15 mg 02/06/24 21:00 02/07/24 08:16 Buspirone Hcl 5 Mg Tab PO 15 mg BID EDY Administration Piperacillin Sod/Tazobactam 100 mls @ 25 mls/hr 02/06/24 09:15 02/07/24 08:16 Sod 3.375 gm/ Sodium Chloride IVPB 25 mls/hr Q8HR EDY Administration Protocol Sodium Chloride 1,000 mls @ 100 mls/hr 02/06/24 10:00 02/07/24 05:23 Saline 0.9% IV Not Given .Q10H EDY Lisinopril 20 mg 02/06/24 11:45 02/07/24 08:16 Lisinopril 20 Mg Tab PO 20 mg BID EDY Administration Metoprolol Tartrate 25 mg 02/06/24 11:45 02/07/24 08:16 Metoprolol Tartrate 25 Mg Tab PO 25 mg DAILY EDY Administration Mirtazapine 30 mg 02/06/24 21:00 02/06/24 21:38 Mirtazapine 15 Mg Tab PO 30 mg HS EDY Administration Miscellaneous Information 1 each 02/06/24 09:52 Pneumonia Protocol Utilized 1 Each Misc PO ONCE PRN Per Protocol Paroxetine HCl 40 mg 02/06/24 11:45 02/07/24 08:16 Paroxetine 20 Mg Tab PO 40 mg DAILY EDY Administration Objective - Vital Signs Vital signs: Vital Signs Temp 97.8 F 02/07/24 07:46 Pulse 68 02/07/24 08:57 Resp 18 02/07/24 07:46 BP 137/65 02/07/24 07:46 Pulse Ox 96 02/07/24 08:48 FiO2 Intake & Output 02/06/24 02/07/24 02/07/24 18:59 06:59 18:59 Intake Total 200 Balance 200 Weight 71.668 kg Intake: IV 200 Other: Voiding Method Toilet # Voids 1 - Exam GENERAL: The patient is alert and oriented x3, not in any acute distress. Well developed, well nourished. HEENT: Pupils are round and equally reacting to light. EOMI. No scleral icterus. No conjunctival pallor. Normocephalic, atraumatic. No pharyngeal erythema. No thyromegaly. CARDIOVASCULAR: S1 and S2 present. No murmurs, rubs, or gallops. -PULMONARY: Chest is clear to auscultation, no wheezing , bilateral scattered crackles. Mild tachypnea ABDOMEN: Soft, nontender, nondistended, normoactive bowel sounds. No palpable organomegaly. MUSCULOSKELETAL: No joint swelling or deformity. EXTREMITIES: No cyanosis, clubbing, or pedal edema. NEUROLOGICAL: Gross neurological examination did not reveal any focal deficits. SKIN: No rashes. no petechiae. - Labs CBC & Chem 7: 02/07/24 04:44 02/07/24 04:44 Labs: Abnormal Lab Results - Last 24 Hours (Table) 02/07/24 02/07/24 02/07/24 Range/Units 04:44 04:44 04:44 WBC 16.79 H (4.50-10.00) X 10*3/uL RBC 3.97 L (4.40-5.60) X 10*6/uL Hgb 12.0 L (13.0-17.0) g/dL Hct 37.3 L (39.6-50.0) % Immature Gran # 0.08 H (0.00-0.04) X 10*3/uL Neutrophils # 13.50 H (1.80-7.70) X 10*3/uL Monocytes # 1.19 H (0.20-1.00) X 10*3/uL Calcium 8.4 L (8.7-10.3) mg/dL Procalcitonin 0.73 H (0.02-0.09) ng/mL Assessment and Plan Assessment: 1. Acute hypoxemic respiratory failure -Likely related to community-acquired pneumonia; patient will need to be ruled out for malignancy, given hypoxic respiratory failure and hemoptysis 2. Community-acquired pneumonia -Patient has been placed on IV Zosyn; continue with current bronchodilator therapy -- Sputum culture and blood cultures have been ordered; adjust antibiotics accordingly -We will monitor CBC, CRP and procalcitonin -S/p bronchoalveolar lavage and bronchoscopy on 02/06 3. Hemoptysis; could be associated with community-acquired pneumonia; malignancy will need to to be ruled out -- Pulmonary service on board; possibility of bronchoscopy for further evaluation this admission 4. Hypertension; lisinopril 40 mg twice daily; amlodipine 10 mg daily; metoprolol 25 mg daily 5. Hyperlipidemia; simvastatin 40 mg nightly 6. History of coronary artery disease; patient is status post CABG; patient takes statins and beta-blockers 7. History of CVA; continue with Zocor 40 mg nightly; hold off on aspirin given hemoptysis 8. Anxiety/depression; Paxil 40 mg daily; Remeron 30 mg p.o. nightly DVT prophylaxis; SCDs only, given hemoptysis CODE STATUS; full code
--- NOTE | 2024-02-07 13:44 | P.PN ---
Subjective Progress Note Date: 02/07/24 This is a [place] 73-year-old male patient with a known history of anxiety, depression, former heavy smoker, vaping, hypertension, hyperlipidemia, CVA, coronary artery disease with previous coronary artery bypass grafting s. He presented to the emergency room this morning after having 3 episodes of coughing up proximately tablespoon of bright red blood. He did have some chills and shortness of breath. X-ray reveals patchy infiltrate in the right lung. ET angiogram ruled out pulmonary embolism. There is again noted patchy infiltrates predominantly within the right lung. Possible atypical pneumonia. Does have a Tmax of 100.8. White count 22.5. Hemoglobin 14.4. Platelets 249. Sodium 136. Potassium 4.0. Bicarb 23. BUN 17. Creatinine 0.90. Glucose 135. Troponin 0.065. Viral screen negative. He is seen today in consultation in the emergency department. Currently sitting up on the stretcher. Awake and alert in no acute distress. No hemoptysis currently. Maintaining good O2 saturations in the 90s on 3 L/min per nasal cannula. Has been hemodynamically stable. The patient is seen today February 07, 2024 in follow-up on the regular medical floor. He is awake and alert in no acute distress. He has not had any further hemoptysis today. He is maintaining good O2 saturations in the 90s on 3 L/min per nasal cannula. No IV fluids. White count 16.7. Hemoglobin 12.0. Platel ets 230. Sodium 140. Potassium 4.1. Bicarb 25. BUN 16. Creatinine 1.0. Procalcitonin was 0.73. He is continued on DuoNeb ventilations. Antibiotics in the form of Zosyn. Plan is for bronchoscopy with BAL today. Objective - Vital Signs Vital signs: Vital Signs Temp 97.8 F 02/07/24 07:46 Pulse 68 02/07/24 08:57 Resp 18 02/07/24 07:46 BP 137/65 02/07/24 07:46 Pulse Ox 96 02/07/24 08:48 FiO2 Intake & Output 02/06/24 02/07/24 02/07/24 18:59 06:59 18:59 Intake Total 200 Balance 200 Weight 71.668 kg Intake: IV 200 Other: Voiding Method Toilet # Voids 1 - Exam GENERAL EXAM: Alert, pleasant 73-year-old male, sitting comfortably in bed, on 3 L nasal cannula, in no apparent distress. HEAD: Normocephalic. EYES: Normal reaction of pupils, equal size. NOSE: Clear with pink turbinates. THROAT: No erythema or exudates. NECK: No masses, no JVD. CHEST: No chest wall deformity. LUNGS: Equal air entry with scattered rhonchi over the right lung. CVS: S1 and S2 normal with no audible murmur, regular rhythm. ABDOMEN: No hepatosplenomegaly, normal bowel sounds, no guarding or rigidity. SPINE: No scoliosis or deformity SKIN: No rashes CENTRAL NERVOUS SYSTEM: No focal deficits, tone is normal in all 4 extremities. EXTREMITIES: There is no peripheral edema. No clubbing, no cyanosis. Peripheral pulses are intact. - Labs CBC & Chem 7: 02/07/24 04:44 02/07/24 04:44 Labs: Abnormal Lab Results - Last 24 Hours (Table) 02/07/24 02/07/24 02/07/24 Range/Units 04:44 04:44 04:44 WBC 16.79 H (4.50-10.00) X 10*3/uL RBC 3.97 L (4.40-5.60) X 10*6/uL Hgb 12.0 L (13.0-17.0) g/dL Hct 37.3 L (39.6-50.0) % Immature Gran # 0.08 H (0.00-0.04) X 10*3/uL Neutrophils # 13.50 H (1.80-7.70) X 10*3/uL Monocytes # 1.19 H (0.20-1.00) X 10*3/uL Calcium 8.4 L (8.7-10.3) mg/dL Procalcitonin 0.73 H (0.02-0.09) ng/mL Assessment and Plan Assessment: Acute hypoxemic respiratory failure secondary to possible community-acquired pneumonia, procalcitonin 0.73. Plan is for bronchoscopy with BAL today February 07, 2024 Hemoptysis secondary to above Febrile illness secondary to above Leukocytosis secondary to above Former heavy smoker, vaping Coronary artery disease with previous coronary artery bypass grafting Hypertension Hyperlipidemia Anxiety/depression History of CVA Plan: The patient was seen and evaluated Labs and medications reviewed Continue Jewel bronchodilators Plan is for bronchoscopy with BAL today We will continue to follow I have personally seen and examined the patient, performed the documentation and the assessment and plan as written. Number of minutes spent on the visit: 10.
[2024-02-07 18:51] LABS: Appearance,BF Cloudy (Clear); RBC, Body Fluid 2620 /UL (0-2000)
[2024-02-08 09:16] LABS: Nucleated Cells, Body Fluid 690 /UL
--- NOTE | 2024-02-08 11:56 | P.PN ---
Subjective 73-year-old male, history of hypertension, hyperlipidemia, coronary artery disease, present to the emergency department with hemoptysis and dyspnea. Patient has had dyspnea slowly progressive over the past several weeks. Patient has felt warm and cold over the past couple of days. Patient had 3 episodes of small amount of hemoptysis this morning. Patient otherwise has not been coughing all that much. X-ray reveals patchy infiltrate in the right lung. ET angiogram ruled out pulmonary embolism. There is again noted patchy infiltrates predominantly within the right lung. Possible atypical pneumonia. Does have a Tmax of 100.8. White count 22.5. Hemoglobin 14.4. Platelets 249. Sodium 136. Potassium 4.0. Bicarb 23. BUN 17. Creatinine 0.90. Glucose 135. Troponin 0.065. Viral screen negative. 02/07/2024 Patient is awake and alert His dyspnea is better, mild occasional cough and He has bronchoscopy today showing purulent secretion in the right lung, no obvious lesion or tumor, sputum culture is pending Currently covered with Zosyn. 02/08/2024 Patient breathing improved. He had bronchoalveolar lavage yesterday. Fever subsided He still on 2 to 3 L oxygen via nasal cannula with saturation in mid 90s, he is not on oxygen at home He is currently on Zosyn. Possible discharge in 24 to 48 hours once cleared by pulmonary service Objective - Vital Signs Vital signs: Vital Signs Temp 97.4 F L 02/08/24 08:00 Pulse 70 02/08/24 08:50 Resp 17 02/08/24 08:00 BP 156/51 02/08/24 08:00 Pulse Ox 92 L 02/08/24 08:00 FiO2 Intake & Output 02/07/24 02/08/24 02/08/24 18:59 06:59 18:59 Intake Total 200 Balance 200 Intake: IV 200 Other: # Voids 4 5 # Bowel Movements 1 - Exam GENERAL: The patient is alert and oriented x3, not in any acute distress. Well developed, well nourished. HEENT: Pupils are round and equally reacting to light. EOMI. No scleral icterus. No conjunctival pallor. Normocephalic, atraumatic. No pharyngeal erythema. No thyromegaly. CARDIOVASCULAR: S1 and S2 present. No murmurs, rubs, or gallops. -PULMONARY: Chest is clear to auscultation, no wheezing , bilateral scattered crackles. Mild tachypnea ABDOMEN: Soft, nontender, nondistended, normoactive bowel sounds. No palpable organomegaly. MUSCULOSKELETAL: No joint swelling or deformity. EXTREMITIES: No cyanosis, clubbing, or pedal edema. NEUROLOGICAL: Gross neurological examination did not reveal any focal deficits. SKIN: No rashes. no petechiae. - Labs CBC & Chem 7: 02/07/24 04:44 02/07/24 04:44 Labs: Abnormal Lab Results - Last 24 Hours (Table) 02/07/24 Range/Units 09:30 Fluid Appearance Cloudy A (Clear) Fluid RBC 2620 H (0-2000) /uL Microbiology - Last 24 Hours (Table) 02/07/24 09:30 Gram Stain - Preliminary Bronchoalviolar Lavage - Right 02/06/24 09:27 Blood Culture - Preliminary Blood 02/06/24 08:36 Blood Culture - Preliminary Blood Assessment and Plan Assessment: 1. Acute hypoxemic respiratory failure -Likely related to community-acquired pneumonia; patient will need to be ruled out for malignancy, given hypoxic respiratory failure and hemoptysis 2. Community-acquired pneumonia -Patient has been placed on IV Zosyn; continue with current bronchodilator therapy -- Sputum culture and blood cultures have been ordered; adjust antibiotics accordingly -We will monitor CBC, CRP and procalcitonin -S/p bronchoalveolar lavage and bronchoscopy on 02/06 3. Hemoptysis; could be associated with community-acquired pneumonia; malignancy will need to to be ruled out -- Pulmonary service on board; possibility of bronchoscopy for further evaluation this admission 4. Hypertension; lisinopril 40 mg twice daily; amlodipine 10 mg daily; metoprolol 25 mg daily 5. Hyperlipidemia; simvastatin 40 mg nightly 6. History of coronary artery disease; patient is status post CABG; patient takes statins and beta-blockers 7. History of CVA; continue with Zocor 40 mg nightly; hold off on aspirin given hemoptysis 8. Anxiety/depression; Paxil 40 mg daily; Remeron 30 mg p.o. nightly DVT prophylaxis; SCDs only, given hemoptysis CODE STATUS; full code
--- NOTE | 2024-02-08 12:10 | CDI ---
Date: 02/08/2024 From: Nuria Rosenthal Phone: [phone] Admit Date: 02/06/2024 09:53:00 AM Patient Name: Dwight Soto V Visit Number: [id number] Discharge Date: ATTENTION: The Clinical Documentation Specialists (CDI) and [facility] Coding Staff appreciate your assistance in clarifying documentation. Please respond to the clarification below the line at the bottom and electronically sign. The CDI & [facility] Coding staff will review the response and follow-up if needed. Please note: Queries are made part of the Legal Health Record. If you have any questions, please contact the author of this message via ITS. Dr. Liao E Sheet: Sepsis is documented in the ED note 02/05 but is not noted in subsequent documentation. Clarification is requested. History/Risk Factors: HTN, CAD who presented with hemoptysis and dyspnea, thought to have Community acquired PNA, acute hypoxic respiratory failure Clinical Indicators: 02/05 Triage VS: 199/80, 100.8, 60, 22, 94% room air 02/05 ED note, Clinical Impression: "Pneumonia, Sepsis, Hemoptysis" 02/05 H&P, HPI: "Patient has felt warm and cold over the past couple of days." 02/05, 02/06 WBC: 22.5, 16.79 02/06 Procalcitonin: 0.73 02/05 Chest X Ray, Impression: "1. Patchy infiltrates in the right lung field. Correlate for pneumonia." 02/05 CTA Chest, Impression: "1. Patchy infiltrates predominantly within the right lung. Correlate for atypical pneumonia." 01/06 Bronchoscopy, airway examination, therapeutic lavage, BAL, right middle lobe, Description of Procedure: "There were secretions throughout. They were purulent." Treatment: Zosyn 3.375gram IV [id number] start 02/05 Normal Saline 100cc/hour start 02/05 Please clarify if Sepsis is: [ ] Sepsis, POA, confirmed, remains under treatment [ x ] Sepsis confirmed, resolved [ ] Sepsis ruled out [ ] Other condition, please specify [ ] Unable to determine In responding to this query, please exercise your independent professional judgment. The [facility] Coding Staff and Clinical Documentation Specialists appreciate your assistance in clarifying documentation, maintaining compliance with coding guidelines, accurately documenting patients condition and capturing severity of illness. The fact that a question is asked does not imply that any particular answer is desired or expected. Communication forms are a method of clarifying documentation and are made part of the Legal Health Record. Thank you in advance for your clarification. Last Revision: January 2021 SIRS Criteria: 2 or more of the following may indicate SIRS Temperature < 96.8F (36C) or > 101.0F (38.3C) Heart Rate > 90 bpm Respiratory Rate > 20 breaths/min or PaCO2 < 32 mmHg White Blood Cell Count > 12,000 or < 4,000 cells/mm3 or > 10% bands MTDD
[2024-02-08 12:29] LABS: HCT 39.8 % (39.0-53.0); HGB 12.6 gm/dL (13.0-17.5); MCH 30.5 pg (25.0-35.0); MCHC 31.5 g/dL (31.0-37.0); MCV 96.7 fL (80.0-100.0); Mean Platelet Volume 8.6; Platelet Count 226 k/uL (150-450); RBC 4.12 m/uL (4.30-5.90); RDW 13.3 % (11.5-15.5); WBC 12.2 k/uL (3.8-10.6)
--- NOTE | 2024-02-08 14:09 | P.PN ---
Subjective Progress Note Date: 02/08/24 This is a pleasant 73-year-old male patient with a known history of anxiety, depression, former heavy smoker, vaping, hypertension, hyperlipidemia, CVA, coronary artery disease with previous coronary artery bypass grafting s. He presented to the emergency room this morning after having 3 episodes of coughing up proximately tablespoon of bright red blood. He did have some chills and shortness of breath. X-ray reveals patchy infiltrate in the right lung. ET angiogram ruled out pulmonary embolism. There is again noted patchy infiltrates predominantly within the right lung. Possible atypical pneumonia. Does have a Tmax of 100.8. White count 22.5. Hemoglobin 14.4. Platelets 249. Sodium 136. Potassium 4.0. Bicarb 23. BUN 17. Creatinine 0.90. Glucose 135. Troponin 0.065. Viral screen negative. He is seen today in consultation in the emergency department. Currently sitting up on the stretcher. Awake and alert in no acute distress. No hemoptysis currently. Maintaining good O2 saturations in the 90s on 3 L/min per nasal cannula. Has been hemodynamically stable. The patient is seen today February 07, 2024 in follow-up on the regular medical floor. He is awake and alert in no acute distress. He has not had any further hemoptysis today. He is maintaining good O2 saturations in the 90s on 3 L/min per nasal cannula. No IV fluids. White count 16.7. Hemoglobin 12.0. Platel ets 230. Sodium 140. Potassium 4.1. Bicarb 25. BUN 16. Creatinine 1.0. Procalcitonin was 0.73. He is continued on DuoNeb ventilations. Antibiotics in the form of Zosyn. Plan is for bronchoscopy with BAL today. The patient is seen today February 08, 2024 in follow-up on the regular medical floo r. He is currently resting comfortably in bed. Awake and alert in no acute distress. Denies any further hemoptysis. He did undergo a bronchoscopy with BAL and airway exam yesterday. There was no areas of bleeding identified. Cultures pending. Procalcitonin was 0.73. He remains on Zosyn for now. White count 12.2. Hemoglobin 12.6. Influenza screen was negative. Viral screen was negative. He is maintaining good O2 saturation in the 90s on 3 L/min per nasal cannula. Has been afebrile. Hemodynamically stable. Objective - Vital Signs Vital signs: Vital Signs Temp 97.4 F L 02/08/24 08:00 Pulse 70 02/08/24 08:50 Resp 17 02/08/24 08:00 BP 156/51 02/08/24 08:00 Pulse Ox 92 L 02/08/24 08:00 FiO2 Intake & Output 02/07/24 02/08/24 02/08/24 18:59 06:59 18:59 Intake Total 200 100 Balance 200 100 Intake: IV 200 Oral 100 Other: Voiding Method Toilet # Voids 4 5 # Bowel Movements 1 - Exam GENERAL EXAM: Alert, 73-year-old male, resting in bed, on 3 L nasal cannula, in no apparent distress. HEAD: Normocephalic. EYES: Normal reaction of pupils, equal size. NOSE: Clear with pink turbinates. THROAT: No erythema or exudates. NECK: No masses, no JVD. CHEST: No chest wall deformity. LUNGS: Equal air entry with scattered rhonchi over the right lung. CVS: S1 and S2 normal with no audible murmur, regular rhythm. ABDOMEN: No hepatosplenomegaly, normal bowel sounds, no guarding or rigidity. SPINE: No scoliosis or deformity SKIN: No rashes CENTRAL NERVOUS SYSTEM: No focal deficits, tone is normal in all 4 extremities. EXTREMITIES: There is no peripheral edema. No clubbing, no cyanosis. Peripheral pulses are intact. - Labs CBC & Chem 7: 02/08/24 12:04 02/07/24 04:44 Labs: Abnormal Lab Results - Last 24 Hours (Table) 02/07/24 02/08/24 Range/Units 09:30 12:04 WBC 12.2 H (3.8-10.6) k/uL RBC 4.12 L (4.30-5.90) m/uL Hgb 12.6 L (13.0-17.5) gm/dL Fluid Appearance Cloudy A (Clear) Fluid RBC 2620 H (0-2000) /uL Microbiology - Last 24 Hours (Table) 02/07/24 09:30 Gram Stain - Preliminary Bronchoalviolar Lavage - Right 02/06/24 09:27 Blood Culture - Preliminary Blood 02/06/24 08:36 Blood Culture - Preliminary Blood Assessment and Plan Assessment: Acute hypoxemic respiratory failure secondary to possible community-acquired pneumonia, procalcitonin 0.73. Bronchoscopy February 07, 2024 with no areas of acti ve bleeding cultures pending Hemoptysis secondary to above, recovered Febrile illness secondary to above, recovered Leukocytosis secondary to above, improving Former heavy smoker, vaping Coronary artery disease with previous coronary artery bypass grafting Hypertension Hyperlipidemia Anxiety/depression History of CVA Plan: The patient was seen and evaluated Labs and medications reviewed Bronchoscopy revealed no active bleeding No further hemoptysis Continue Zosyn and bronchodilators Follow-up chest x-ray in a.m. This patient was seen independently by the pulmonary nurse practitioner addressing pulmonary issues I have personally seen and examined the patient, performed the documentation and the assessment and plan as written. Number of minutes spent on the visit: 25.
[2024-02-09 08:35] VITALS: BP 178/70; RESP 17; TEMP 98.1
[2024-02-09 09:15] VITALS: PULSE 74
--- NOTE | 2024-02-09 11:06 | XR ---
EXAMINATION TYPE: XR chest 1V portable DATE OF EXAM: 02/09/2024 7:08 AM CLINICAL INDICATION:Male, 73 years old with history of Pneumonia; COMPARISON: Chest radiographs from 02/07/2024 TECHNIQUE: XR chest 1V portable Frontal view of the chest. FINDINGS: FINDINGS: Lungs/Pleura: Similar right basilar airspace opacities. No evidence of pneumothorax or pleural effusi on. Pulmonary vascularity: Unremarkable. Heart/mediastinum: Cardiomediastinal silhouette is unremarkable. Musculoskeletal: No acute osseous pathology. Midline sternotomy wires are noted. IMPRESSION: Similar right basilar airspace opacities.
--- NOTE | 2024-02-09 12:29 | P.PN ---
Subjective Progress Note Date: 02/09/24 This is a pleasant 73-year-old male patient with a known history of anxiety, depression, former heavy smoker, vaping, hypertension, hyperlipidemia, CVA, coronary artery disease with previous coronary artery bypass grafting s. He presented to the emergency room this morning after having 3 episodes of coughing up proximately tablespoon of bright red blood. He did have some chills and shortness of breath. X-ray reveals patchy infiltrate in the right lung. ET angiogram ruled out pulmonary embolism. There is again noted patchy infiltrates predominantly within the right lung. Possible atypical pneumonia. Does have a Tmax of 100.8. White count 22.5. Hemoglobin 14.4. Platelets 249. Sodium 136. Potassium 4.0. Bicarb 23. BUN 17. Creatinine 0.90. Glucose 135. Troponin 0.065. Viral screen negative. He is seen today in consultation in the emergency department. Currently sitting up on the stretcher. Awake and alert in no acute distress. No hemoptysis currently. Maintaining good O2 saturations in the 90s on 3 L/min per nasal cannula. Has been hemodynamically stable. The patient is seen today February 07, 2024 in follow-up on the regular medical floor. He is awake and alert in no acute distress. He has not had any further hemoptysis today. He is maintaining good O2 saturations in the 90s on 3 L/min per nasal cannula. No IV fluids. White count 16.7. Hemoglobin 12.0. Platel ets 230. Sodium 140. Potassium 4.1. Bicarb 25. BUN 16. Creatinine 1.0. Procalcitonin was 0.73. He is continued on DuoNeb ventilations. Antibiotics in the form of Zosyn. Plan is for bronchoscopy with BAL today. The patient is seen today February 08, 2024 in follow-up on the regular medical floo r. He is currently resting comfortably in bed. Awake and alert in no acute distress. Denies any further hemoptysis. He did undergo a bronchoscopy with BAL and airway exam yesterday. There was no areas of bleeding identified. Cultures pending. Procalcitonin was 0.73. He remains on Zosyn for now. White count 12.2. Hemoglobin 12.6. Influenza screen was negative. Viral screen was negative. He is maintaining good O2 saturation in the 90s on 3 L/min per nasal cannula. Has been afebrile. Hemodynamically stable. The patient is seen today February 09, 2024 in follow-up on the regular medical floor. He is sitting up in bed. Awake and alert in no acute distress. Denies any further hemoptysis. Maintaining good O2 saturations in the 90s on 2 L/min per nasal cannula. No new labs today. He remains on bronchodilator normal saline at [facility]. Bronchial wash cultures revealed no growth. Objective - Vital Signs Vital signs: Vital Signs Temp 98.1 F 02/09/24 06:55 Pulse 74 02/09/24 08:37 Resp 17 02/09/24 06:55 BP 178/70 02/09/24 06:55 Pulse Ox 91 L 02/09/24 10:38 FiO2 Intake & Output 02/08/24 02/09/24 02/09/24 18:59 06:59 18:59 Intake Total 100 200 Balance 100 200 Intake: Oral 100 200 Other: Voiding Method Toilet # Voids 2 3 - Exam GENERAL EXAM: Alert, 73-year-old male, on 2 L nasal cannula, in no apparent distress. HEAD: Normocephalic. EYES: Normal reaction of pupils, equal size. NOSE: Clear with pink turbinates. THROAT: No erythema or exudates. NECK: No masses, no JVD. CHEST: No chest wall deformity. LUNGS: Equal air entry with scattered rhonchi over the right lung. CVS: S1 and S2 normal with no audible murmur, regular rhythm. ABDOMEN: No hepatosplenomegaly, normal bowel sounds, no guarding or rigidity. SPINE: No scoliosis or deformity SKIN: No rashes CENTRAL NERVOUS SYSTEM: No focal deficits, tone is normal in all 4 extremities. EXTREMITIES: There is no peripheral edema. No clubbing, no cyanosis. Peripheral pulses are intact. - Labs CBC & Chem 7: 02/08/24 12:04 02/07/24 04:44 Labs: Abnormal Lab Results - Last 24 Hours (Table) 02/08/24 Range/Units 12:04 WBC 12.2 H (3.8-10.6) k/uL RBC 4.12 L (4.30-5.90) m/uL Hgb 12.6 L (13.0-17.5) gm/dL Microbiology - Last 24 Hours (Table) 02/07/24 09:30 Gram Stain - Final Bronchoalviolar Lavage - Right Bronchial Washings Culture - Final 02/07/24 09:30 Acid Fast Bacilli Smear - Preliminary Bronchoalviolar Lavage - Right 02/06/24 09:27 Blood Culture - Preliminary Blood 02/06/24 08:36 Blood Culture - Preliminary Blood Assessment and Plan Assessment: Acute hypoxemic respiratory failure secondary to possible community-acquired pneumonia, procalcitonin 0.73. Bronchoscopy February 07, 2024 with no areas of active bleeding cultures revealed no growth Hemoptysis secondary to above, recovered Febrile illness secondary to above, recovered Leukocytosis secondary to above, improving Former heavy smoker, vaping Coronary artery disease with previous coronary artery bypass grafting Hypertension Hyperlipidemia Anxiety/depression History of CVA Plan: The patient was seen and evaluated Chest x-ray and medications reviewed Similar findings in the right base. Bronchoscopy revealed no active bleeding No further hemoptysis Cultures revealed no growth Discontinue Zosyn Recommend 5 days of Augmentin Cleared for discharge Follow-up in our office in 1 week I have personally seen and examined the patient, performed the documentation and the assessment and plan as written. Number of minutes spent on the visit: 10.
[2024-02-09] MEDS ORDERED: AMOXIC-POT CLAV 875-125MG 1 EACH TAB PO SCH (21:00)
--- NOTE | 2024-02-09 23:43 | P.DS ---
Providers Date of admission: 02/06/24 09:53 Attending physician: Gustavo Vick MD Consults: 02/06/24 09:52 Consult Physician Routine Consulting Provider: Nava Puckett Consult Reason/Comments: Mopped assist, pneumonia, sepsis Do you want consulting provider notified?: Already Contacted Primary care physician: Lola Badillo MD Hospital Course: Diagnoses: 1. Acute hypoxemic respiratory failure, resolved 2. Community-acquired pneumonia , improved 3. Hemoptysis; resolved, stopped 4. Hypertension; 5. Hyperlipidemia; 6. History of coronary artery disease; 7. History of CVA; 8. Anxiety/depression; Hospital course: 73-year-old male, history of hypertension, hyperlipidemia, coronary artery disease, present to the emergency department with hemoptysis and dyspnea. Patient has had dyspnea slowly progressive over the past several weeks. Patient has felt warm and cold over the past couple of days. Patient had 3 episodes of small amount of hemoptysis in morning. Patient was admitted with diagnosis of right community-acquired pneumonia. He was treated with antibiotic with Zosyn. Patient showed interval improvement his hemoptysis is postop, he is saturating well on room air, he is not tachypneic or dyspneic whether at rest or with exertion. Patient is wondering in the room freely. Breathing is quiet. No chest pain. No coughing. No other new complaint. Patient's wants to go home today. Patient does not qualify for home oxygen Patient was cleared for discharge by pulmonary service Patient will be discharged on Augmentin x 5 days Problems and management plan were discussed with the patient and he verbalized understanding and acceptance Patient was found stable and can be discharged home in guarded prognosis however he needs follow-up as an outpatient. Patient was instructed to follow up with PCP Dr. rodriguez within one week and patient agrees Patient was instructed to follow-up with Dr. Mart in 2 weeks after discharge and he agrees Physical exam Gen: patient is a AAOx3, no distress CVS: S1-S2, RRR, no murmur Lungs: B/L CTA, no wheezing Abdomen: soft, no distention, no tenderness, positive bowel sounds Extremity: no leg edema or induration Time spent more than 35 minutes Patient Condition at Discharge: Serious Plan - Discharge Summary Discharge Rx Participant: No New Discharge Prescriptions: New Amoxic-Pot Clav 875-125Mg [Augmentin 875-125] 1 each PO Q12HR 5 Days #10 tab Continue Simvastatin [Zocor] 40 mg PO HS Metoprolol Tartrate [Lopressor] 25 mg PO DAILY busPIRone HCL 15 mg PO BID amLODIPine [Norvasc] 10 mg PO DAILY Mirtazapine [Remeron] 30 mg PO HS ALPRAZolam [Xanax] 0.5 mg PO HS PARoxetine HCL [Paxil] 40 mg PO DAILY lisinopriL [Zestril] 20 mg PO BID Discharge Medication List Metoprolol Tartrate [Lopressor] 25 mg PO DAILY 11/04/18 [History] Simvastatin [Zocor] 40 mg PO HS 11/04/18 [History] ALPRAZolam [Xanax] 0.5 mg PO HS 02/06/24 [History] Mirtazapine [Remeron] 30 mg PO HS 02/06/24 [History] PARoxetine HCL [Paxil] 40 mg PO DAILY 02/06/24 [History] amLODIPine [Norvasc] 10 mg PO DAILY 02/06/24 [History] busPIRone HCL 15 mg PO BID 02/06/24 [History] lisinopriL [Zestril] 20 mg PO BID 02/06/24 [History] Amoxic-Pot Clav 875-125Mg [Augmentin 875-125] 1 each PO Q12HR 5 Days #10 tab 02/09/24 [Rx] Follow up Appointment(s)/Referral(s): Nava Puckett MD [STAFF PHYSICIAN] - 1 Week (office closed at time of discharge. Please call to schedule appointment ) Robb Rodriguez DO [REFERRING] - 1-2 days Patient Instructions/Handouts: Bacterial Pneumonia (DC) Activity/Diet/Wound Care/Special Instructions: Heart healthy diet activity is restricted till you see your doctor Discharge Disposition: HOME SELF-CARE
== END 2024-02-09 14:19 | disposition home or self-care (01) | DRG 871 ==
LOC: EC 08:21 → 4SSUR 09:53
PROVIDERS: ADMIT Internal Medicine; ATTEND Internal Medicine
PROC: 0B9D8ZX Drainage of Right Middle Lung Lobe, Via Natural or Artificial Opening Endoscopic, Diagnostic (ICD-10-PCS; principal; 2024-02-07 09:10)
DX: A41.9 Sepsis, unspecified organism (principal); J18.9 Pneumonia, unspecified organism; J96.01 Acute respiratory failure with hypoxia; R04.2 Hemoptysis; I10 Essential (primary) hypertension; F32.A Depression, unspecified; I25.10 Atherosclerotic heart disease of native coronary artery without angina pectoris; E78.5 Hyperlipidemia, unspecified; F41.9 Anxiety disorder, unspecified; Z79.899 Other long term (current) drug therapy; Z95.1 Presence of aortocoronary bypass graft; Z87.891 Personal history of nicotine dependence; Z11.52 Encounter for screening for COVID-19; Z86.73 Personal history of transient ischemic attack (TIA), and cerebral infarction without residual deficits
CPT/HCPCS: 31624; 36415; 71045; 71046; 71275; 80048; 80053; 83605; 83735; 84145; 84484; 85025; 85027; 85379; 85610; 85730; 87040; 87070; 87102; 87116; 87205; 87206; 87449; 87496; 87498; 87502; 87529; 87634; 87635; 87636; 87798; 88108; 88305; 89050; 93005; 94640; 94760; 96365; 96366; 99291

== ENCOUNTER → 2024-06-05 | Outpatient (CLI) | payer MEDICARE, OTHER ==
[2024-06-05 11:10] VITALS: BP 103/56; PULSE 56; RESP 18; TEMP 97.5
--- NOTE | 2024-06-05 11:42 | P.SLEEP ---
History of Present Illness DATE: 06/05/2024 CONSULTATION/NEW PATIENT EVALUATION HISTORY OF PRESENT ILLNESS/SLEEP-WAKE EVALUATION: 73-year-old gentleman had b een evaluated in the sleep center for possible obstructive sleep apnea hypopnea syndrome. Patient sleep study in another institution about 13 years ago, results was not conclusive. SLEEP SCHEDULE: Usually sleep schedule from 11 PM to 6:30 AM 7 days a week. FALLING ASLEEP: No problems with falling asleep at the present time. DURING SLEEP: Patient snores and wakes up from sleep 4 times with nocturia. Patient has a lot of bad dreams. No history of hypnogogical hallucinations, sleep paralysis, or cataplexy. DURING THE DAY/WAKE STATE: The patient does not have significant sleepiness during the day. [place] sleepiness scale is 3. Patient does not take naps. PAST MEDICAL HISTORY: Coronary artery disease, hypertension, depression, hyperlipidemia. PAST SURGICAL HISTORY: CABG, rotator cuff surgery. MEDICATIONS: Please see below. SOCIAL HISTORY: Please see below. FAMILY HISTORY: Hypertension cancer. REVIEW OF SYSTEMS: Snoring, multiple awakenings from sleep. No fevers. No double vision. No recent chest pain. No shortness of breath. No abdominal pain. No bleeding episodes. No blood in urine. No seizure episodes. PHYSICAL EXAMINATION: GENERAL: A pleasant patient without any distress. VITAL SIGNS: Please see below, weight 139.8 pounds, BMI 22.0. HEENT: PERRLA, EOMI. Evaluation of oropharynx showed tongue protrudes midline, low position of soft palate Mallampati 4, retrognathia 2 mm. NECK: Supple. No JVD. Thyroid is not palpable. 15-1/4 inches in circumference. LUNGS: Clear to percussion and to auscultation. Good air exchange. No wheezing or rhonchi. HEART: S1, S2 regular. No murmurs, gallops or rubs. ABDOMEN: Soft and nontender. Bowel sounds are present. No organomegaly appreciated. EXTREMITIES: No clubbing or cyanosis. CONSUMER SALES REPRESENTATIVE: Awake, alert, and oriented x3. Cranial nerves 2 to 7 intact. There is no fasciculation or atrophy noted. No focal deficits observed. ASSESSMENT: 1. Snoring, multiple awakenings from sleep, extremely low position of soft amy te, retrognathia 2 mm. Possible obstructive sleep apnea hypopnea syndrome. 2. Coronary artery disease, status post CABG. 3. Hypertension. 4. History of depression. 5. Hyperlipidemia. 6 . Status post rotator cuff surgery. PLAN: 1. Polysomnography for evaluation of patient's breathing during sleep. 2. Following plan after reading sleep study. 3. Preferable position during sleep on the side. 4. No driving if patient feels any sleepiness. Patient is aware of civil and criminal liability for unsafe driving. 5. Sleep hygiene with regular sleep time for at least 7.5-8 hour s. 6. Watching weight. Thank you very much for referring this patient for consultation. Sincerely, Darío Adkins MD, PhD, FAASM. Diplomat of [place] [employer], Sleep Medicine Board by [place] [employer] [place] [employer] Medical Technical Writer of [facility] [place] cc: Josiah Galicia MD Past Medical History Past Medical History: Coronary Artery Disease (CAD), Chest Pain / Angina, CVA/TIA, Hyperlipidemia, Hypertension Additional Past Medical History / Comment(s): stroke 2 years ago, went to [facility] for treatment states , anxiety (06/05/24 just got off xanax on May 02, 2024 - was on this for 14 years). History of Any Multi-Drug Resistant Organisms: None Reported Past Surgical History: Coronary Bypass/CABG, Orthopedic Surgery Additional Past Surgical History / Comment(s): rotator cuff Past Anesthesia/Blood Transfusion Reactions: No Reported Reaction Past Psychological History: Anxiety Additional Psychological History / Comment(s): Was on Xanax for bout 14 years, recently taken off on May 02, 2024. Smoking Status: Former smoker, Vaper Past Alcohol Use History: None Reported Additional Past Alcohol Use History / Comment(s): No longer smokes, but does Vape. Past Drug Use History: None Reported Medications and Allergies Home Medications Medication Instructions Recorded Confirmed Type Metoprolol Tartrate [Lopressor] 25 mg PO DAILY 11/04/18 06/05/24 History Simvastatin [Zocor] 40 mg PO HS 11/04/18 06/05/24 History ALPRAZolam [Xanax] 0.5 mg PO HS 02/06/24 02/06/24 History Mirtazapine [Remeron] 30 mg PO HS 02/06/24 02/06/24 History PARoxetine HCL [Paxil] 40 mg PO DAILY 02/06/24 02/06/24 History amLODIPine [Norvasc] 10 mg PO DAILY 02/06/24 06/05/24 History busPIRone HCL 30 mg PO DAILY 02/06/24 06/05/24 History lisinopriL [Zestril] 20 mg PO DAILY 02/06/24 06/05/24 History Amoxic-Pot Clav 875-125Mg 1 each PO Q12HR 5 Days #10 tab 02/09/24 Rx [Augmentin 875-125] Montelukast [Singulair] 10 mg PO HS 06/05/24 06/05/24 History QUEtiapine [SEROquel] 50 mg PO HS 06/05/24 06/05/24 History Sertraline [Zoloft] 100 mg PO DAILY 06/05/24 06/05/24 History clonazePAM [KlonoPIN] 0.5 mg PO TID 06/05/24 06/05/24 History Allergies Allergy/AdvReac Type Severity Reaction Status Date / Time No Known Allergies Allergy Verified 02/06/24 09:34 Physical Exam Vitals: Vital Signs Temp Pulse Resp BP Pulse Ox 06/05/24 11:08 97.5 F L 56 L 18 103/56 99 Intake and Output 06/04/24 06/05/24 06/05/24 22:59 06:59 14:59 Other: Weight 63.276 kg Sleep Note - Sleep Data ESS Total: 3 - Sleep Note Sleep Note: Temperature: 97.5 F Pulse Rate: 56 Respiratory Rate: 18 Blood Pressure: 103/56 SpO2: 99 Height: 5 ft 6.5 in Weight: 63.276 kg BMI: Neck Circumference: 15.2
== END ==
LOC: 3 N SLEEP 10:40
PROVIDERS: ATTEND Internal Medicine
DX: R06.83 Snoring (principal); M26.19 Other specified anomalies of jaw-cranial base relationship; I25.10 Atherosclerotic heart disease of native coronary artery without angina pectoris; I10 Essential (primary) hypertension; E78.5 Hyperlipidemia, unspecified; F32.A Depression, unspecified; Z95.5 Presence of coronary angioplasty implant and graft; Z98.890 Other specified postprocedural states; Z87.891 Personal history of nicotine dependence; Z79.899 Other long term (current) drug therapy
CPT/HCPCS: 99211

== ENCOUNTER 2024-07-03 19:42 | Outpatient (CLI) | payer MEDICARE, OTHER ==
--- NOTE | 2024-07-05 16:24 | P.PCN ---
Description of Procedure: POLYSOMNOGRAPHY REPORT PROCEDURE(S)/DATE(S): Polysomnography 07/03/2024 CLINICAL: Patient has been seen in the sleep center for evaluation of obstructive sleep apnea-hypopnea syndrome. Please see my consultation. Sleep study has been done for evaluation of patient breathing during the sleep. PROCEDURE: The standard montage for clinical polysomnography included the electroencephalogram, the electrooculogram, the mentalis surface electromyography and Lead II cardiography. The respiratory battery consisted of measurements of nasal/buccal air flow, pressure transducer measurements from nose, thoracic and/or abdominal effort and intercostal surface electromyography. Video monitoring has been done to check for any parasomnia events. Nocturnal oxyhemoglobin saturations were obtained by finger oximetry. Step-bland titration with positive airway pressure was utilized to control the respiratory events, if necessary. RESULTS: During the diagnostic sleep study sleep efficiency was normal at 94.4%. Latency to sleep onset was normal at 9.5 min. Sleep architecture showed stage NI was short 1.3%, Delta sleep was absent 0%, REM sleep was increased to 45.0%. Respiratory channel showed 0 obstructive apneas, 0 mixed apneas, 0 central apneas, 31 hypopneas with lowest oxygen level 85%. Total apnea hypopnea index was 4.7. Heart rate was in the range between 54 and 86, average 69. EMG showed totally 90 episodes of leg movements. IMPRESSIONS: 1. Very minimal abnormalities of respiration, total apnea hypopnea index 4.7, which is in normal range by today criteria's. 2. Periodic limb movements have been documented. 3. Loud snoring have been documented Please see other impressions from consultation PLAN: 1. I will see patient for follow-up visit to explain results of the testing recommendations. 2. Sleep hygiene with regular time in bed for at least 7-1/2 hours. 3. No driving if feeling sleepiness. 4. Please check iron profile including ferritin level. Low level of iron may increase the risk for periodic limb movements. Thank you very much for allowing me to participate in the management of your patient. Sincerely, Darío Adkins MD, PhD, FAASM. Diplomat of [place] [employer], Sleep Medicine Board by [place] [employer] Party Plan Salesperson of [facility] [place]
== END 2024-07-04 05:46 | disposition home or self-care (01) ==
LOC: 3 N SLEEP 19:42
PROVIDERS: ATTEND Internal Medicine
CPT/HCPCS: 95810

== ENCOUNTER → 2024-08-10 | Outpatient (CLI) | payer MEDICARE, OTHER ==
[2024-08-10 10:37] LABS: ALT 17 U/L (10-49); AST 14 U/L (14-35); Chol/HDL Ratio 2.29 Ratio; LDL Cholesterol,Calculated 76.3 mg/dL (0.0-131.0); VLDL Calculation 10.92 mg/dL (5.00-40.00)
== END | disposition home or self-care (01) ==
LOC: LABWHC1 07:44
PROVIDERS: ATTEND Nurse Practitioner Acute Care
DX: E78.2 Mixed hyperlipidemia (principal)
CPT/HCPCS: 36415; 80061; 84450; 84460

== ENCOUNTER → 2024-09-27 | Outpatient (CLI) | payer MEDICARE, OTHER ==
[2024-09-27 14:55] VITALS: BP 160/79; PULSE 64; RESP 16; TEMP 97.4
--- NOTE | 2024-09-27 15:19 | P.PROGSL ---
Subjective DATE: 09/27/2024 FOLLOW UP VISIT. Patient returned to sleep center for follow-up visit to discuss results of polysomnogram and following plan. I discussed results of polysomnogram with patient in details. No significant respiratory abnormalities have been documented. Total apnea hypopnea index was 4.7, which is in normal range by today's criteria is. It was documented 90 periodic limb movements for the whole night which was around 13/h. The patient clinically does not have any awakenings related to leg movements according to him, except his sometimes mentioned that to him. No significant sleepiness during the day. [place] Sleepiness Scale is 5, which is normal. MEDICATIONS: Please see below During physical exam: GENERAL: A pleasant patient without any distress. VITAL SIGNS: Please see below. HEENT: PERRLA, EOMI. NECK: Supple. No JVD. LUNGS: Clear to percussion and to auscultation. Good air exchange. No wheezing or rhonchi. HEART: S1, S2 regular. ABDOMEN: Soft and nontender. EXTREMITIES: No clubbing or cyanosis. ELECTRICAL AND RADIO MOCK UP MECHANIC: Awake, alert, and oriented x3. No focal deficit. Impressions: 1. No significant respiratory abnormalities have been documented during the sleep study. Apnea hypopnea index was 4.7, which is in normal range by today's criteria's. 2. Loud snoring have been documented. 3. Periodic limb movements have been documented but in very mild range, total about 13 times per hour which is again in normal range by today's criteria Cephus less than 15. Clinically patient does not have complaints on awakening secondary to leg movements, feel well during the day, [place] Sleepiness Scale is normal. 4. Coronary artery disease, status post CABG. 5. Hypertension. 6. History of depression. 7. Hyperlipidemia. 8. Status post rotator cuff surgery. Plan: 1. Sleep hygiene with regular time in bed for at least 8 hours. 2. Preferable position during the sleep on the side. 3. Please check iron profile including ferritin level, low level of iron may increase risk for periodic limb movements. 4. Precautions related to driving. No driving if feel any sleepiness. Patient is aware about civil and criminal liability for unsafe driving, promised to follow recommendations. 5. Clinically patient does not need any pharmacotherapy for periodic limb movements. SSRIs may increase risk for periodic limb movements. 6. Follow-up visit in 1 year if necessary. Thank you very much for allowing me to participate in the management of your patient. Darío Adkins MD, PhD, FAASM. Diplomat of [place] [employer], Sleep Medicine Board by [place] [employer] Non Ferrous Material Handler of [facility] [place] cc: Lola Badillo MD Objective - Vital Signs Vital Signs: Vital Signs Temp 97.4 F L 09/27/24 14:54 Pulse 64 09/27/24 14:54 Resp 16 09/27/24 14:54 BP 160/79 09/27/24 14:54 Pulse Ox 97 09/27/24 14:54 FiO2 Intake & Output 09/26/24 09/27/24 09/27/24 18:59 06:59 18:59 Weight 66.224 kg Home Medications: Home Medications Medication Instructions Recorded Confirmed Type Metoprolol Tartrate [Lopressor] 25 mg PO DAILY 11/04/18 06/05/24 History Simvastatin [Zocor] 40 mg PO HS 11/04/18 09/27/24 History ALPRAZolam [Xanax] 0.5 mg PO HS 02/06/24 02/06/24 History Mirtazapine [Remeron] 30 mg PO HS 02/06/24 02/06/24 History PARoxetine HCL [Paxil] 40 mg PO DAILY 02/06/24 02/06/24 History amLODIPine [Norvasc] 10 mg PO DAILY 02/06/24 06/05/24 History busPIRone HCL 30 mg PO DAILY 02/06/24 09/27/24 History lisinopriL [Zestril] 20 mg PO DAILY 02/06/24 09/27/24 History Amoxic-Pot Clav 875-125Mg 1 each PO Q12HR 5 Days #10 tab 02/09/24 Rx [Augmentin 875-125] Montelukast [Singulair] 10 mg PO HS 06/05/24 09/27/24 History QUEtiapine [SEROquel] 50 mg PO HS 06/05/24 09/27/24 History Sertraline [Zoloft] 100 mg PO DAILY 06/05/24 09/27/24 History clonazePAM [KlonoPIN] 0.5 mg PO TID 06/05/24 09/27/24 History
== END ==
LOC: 3 N SLEEP 14:40
PROVIDERS: ATTEND Internal Medicine
DX: G47.33 Obstructive sleep apnea (adult) (pediatric) (principal); G47.61 Periodic limb movement disorder; I25.10 Atherosclerotic heart disease of native coronary artery without angina pectoris; I10 Essential (primary) hypertension; E78.5 Hyperlipidemia, unspecified; F32.A Depression, unspecified; F17.200 Nicotine dependence, unspecified, uncomplicated; Z98.890 Other specified postprocedural states; Z95.1 Presence of aortocoronary bypass graft; Z79.899 Other long term (current) drug therapy
CPT/HCPCS: 99212